=== PATIENT | female | born 1995 | race Caucasian/White ===

== ENCOUNTER 2025-10-04 08:31 | Outpatient (REF) | payer OTHER, SELFPAY ==
--- OUTSIDE RECORDS SUMMARY | 2024-08-17 10:00 | XMS_ITS ---
Author Organization [facility] [address] Address [address] [place] [address] Care Team Providers Care Director Of Web Marketing Name Role Phone VIKKILOS MITCHELL Unavailable [phone] CAROLINA VAZQUEZ Unavailable [phone] Encounters Encounter Location Date Provider Diagnosis [facility] [address] [place] [address] 08/17/2024 CAROLINA VAZQUEZ Plan Of Treatment No Information Progress Notes * EDGARBrendaDiamondOB:1995 (30 yo F)Acc No.[id number]:08/17/2024 Patient: Gale GUTIERRES Provider: Cheri VELÁZQUEZ PA-C :1995 A ge:29 Y S ex:Female Date:08/17/2024 Address:[address] [place] [address] [address], [facility] Subjective: * Chief Complaints: * * Medical History: Objective: * Vitals: Assessment: Plan: * Treatment: * Procedure Codes: 9 9199 NO SHOW OFFICE VISIT * Images: Billing Information: * Visit Code: * Procedure Codes: 29712 NO SHOW OFFICE VISIT. * Electronic signature of MARGRET VAZQUEZ PA-C on 10/04/2025 at 08:49 AM EST Sign off status: Pending * Provider: Cheri VELÁZQUEZ PA-C Date: 0 08/17/2024 Generated for Printi ng/Faxing/eTransmitting on: 1 12/04/2024 08:49 AM EST
--- OUTSIDE RECORDS SUMMARY | 2025-10-04 08:49 | XMS_ITS | Clinical Summary ---
Author Organization [facility] [address] [place] [address] [place] [phone] Phone Care Team Providers Care Printer Maintainer Name Role Phone Alvaro Gallagher MD Primary Care Pr ovider Allergies Active Allergy Reactions Criticality Noted Date Comments Polyethylene Glycol Hives,Photosensitivity High 12/31 Medications Falmina, 28, 0.1-20 mg-mcg per tablet Take 1 tablet by mouth daily. 06/05/2025 Active escitalopram (LEXAPRO) 20 mg tabletIndicatio ns:Anxiety and depression Take 0.5 tablets (10 mg total) by mouth 1 (one) time each day for 7 days, THEN 1 tablet (20 mg total) 1 (one) time each day. 184 each 07/20/2025 Active Active Problems Problem Noted Date Diagnosed Date Class 1 obesity due to exces s calories without serious comorbidity with body mass index (BMI) of 33.0 to 33.9 in adult 11/18/2024 Essential hypertension 07/10/2021 Assessment & Plan (07/20/2025 8:55 AM EDT): Not on meds. Blood pressure is well-controlled at 104/82 Orders: Lipid panel with reflex to direct LDL; Future Comprehensive metabolic panel; Future Vitamin D deficiency 05/06/2021 Assessment & Plan (07/20/2025 8:55 AM EDT): Currently not taking vitamin D supplements. Will update labs Orders: Vitamin D 25 hydroxy; Future Anxiety and depression 01/24/2019 Assessment & Plan (07/20/2025 8:55 AM EDT): Will start Lexapro at a ramp-up dose. She is referred to psychiatry. She will continue weekly therapy and biweekly couples therapy. To follow-up as needed. Orders: escitalopram (LEXAPRO) 20 mg tablet; Take 0.5 tablets (10 mg total) by mouth 1 (one) time each day for 7 days, THEN 1 tablet (20 mg total) 1 (one) time each day. Ambulatory referral to Psychiatry; Future Thyroid stimulating hormone with reflex to free t4 and free t3; Future Resolved Problems Problem Noted Date Diagnosed Date Resolved Date Depression 01/24/2019 07/20/2025 Encounters Date Type Department Care Team Description 07/21/2025 Telephone Adult Medicine [address] [phone] Alvaro Gallagher MD 07/20/2025 8:30 AM EDT Office Visit Adult Medicine [address] [phone] Alvaro Gallagher MD Essential hypertension (Primary Dx); Vitamin D deficiency; Anxiety and depression; Dysuria; Screen for STD (sexually transmitted disease) 07/07/2025 Telephone Adult Medicine [address] [phone] Kayce Vides MA from Last 3 Months Immunizations Immunization Administration Dates Next Due DTaP (Infanrix) 6wks to less than 7yo ,03/02/2001,08/19/1997,08/19,1996 ILcZ-XYZ-COV (Pentacel) 2mo to less than 5yo 03/04/2001,1996,1996 H1N1 Inj Preservative Free 10/04/2021,01/30/2010 HPV, Quadrivalent 01/30/2010,03/28/2008,01/25/20 07 Hepatitis B (Ogbomjq-J-Jgtjo , Recombivax HB-Adult) 19yo and older 04/16/2018 Hepatitis B Pediatric (Enger ix B; Recombivax HB) to less than 20 yo 03/04/2001,1996,1996 IPV Inactivated polio (Ipol) 6wks and older 03/04/2001,1996,1996 MMRV, measles mumps rubella and varicella live (Proquad) 4yo to less than 7yo 03/02/2001,08/19/1997 Meningococcal MCV4P 02/23/2014,03/04/2011 Moderna SARS-CoV-2 COVID-19, mRNA, LNP-S, preservative free 12/20/2020,11/22/2020 PPD Test 04/12/2019 Tdap Tetanus diptheria acell ular pertussis (Boostrix; Adacel) 7yo and older 07/08/2020,11/26/2018,02/23/2009 Tetanus Toxoid, Unspecified 04/16/2018, 4 Varicella live (Varivax) 12m o and older 03/04/2011,03/02/2001 Surgical History Surgery Date Site/Laterality Comments SECTION PROCEDURE: HISTORICAL ; COMMENT: 2015 and 2021 Medical History Medical History Date Comments JULIO (iron deficiency anemia) DX: JULIO (iron deficiency anemia) Depression 01/24/2019 DX:Depression Allergic rhinitis 01/24/2019 DX:Allergic rh initis Anxiety 01/24/2019 DX:Anxiety Recurrent major depressive d isorder, in partial remission (CMS/HCC V24) 12/28/2019 DX:Recurrent major depressive disorder, in partial remission ([facility]) Family History Medical History Relation Name Comments Other: autism Brother Depression Father Drug Abuse, Anx iety/Depression Hypertension Mother Nephrolithiasis Mother Hypertension , Anxiety/Depression, Anemia Breast cancer Other bilateral hemanth st cancer at age 54. Lung cancer Other Bipolar disorder Sister 1 Lung cancer Uncle Other: smoker Uncle Colon cancer Neg Hx Ovarian cancer Neg Hx Pancreatic cancer Neg Hx Relation Name Status Comments Brother Father Mother Alive Other maternal great grandmother Sister 1 Alive Sister 2 Alive Uncle Social History Tobacco Use Types Packs/Day Years Used Date Smoking Tobacco: Never Smokeless Tobacco: Never Alcohol Use Standard Drinks/Week Comments Yes 0 (1 standard drink = 0.6 oz pur e alcohol) Comments Unknown Sex and Gender Information Value Date Recorded Sex Assigned at Not on file Legal Sex Female 5:17 PM EST Gender Identity Not on file Sexual Orientation Not on file Obstetrics History Last Filed Vital Signs Vital Sign Reading Time Taken Comments Blood Pressure 114/82 07/20/2025 8:23 AM EDT Pulse 79 07/20/2025 8:23 AM EDT Temperature 36.8 C (98.3 F) 07/20/2025 8:23 AM EDT Respiratory Rate 18 07/20/2025 8:23 AM EDT Oxygen Saturation - - Inhaled Oxygen Concentration - - Weight 82.6 kg (182 lb) 07/20/2025 8:23 AM EDT Height 157.5 cm (5' 2 ) 07/20/2025 8:23 AM EDT Body Mass Index 33.29 07/20/2025 8:23 AM EDT Plan of Treatment Upcoming Encounters Date Type Department Care Team (Late st Contact Info) Description 01/23/2026 8:00 AM EST Office Visit Adult Medicine [address] [phone] Cris Montero PA [address] [place] [address] Health Maintenance Due Date Last Done Comments Cervical Cancer Screening: Pap Smear 2017 Social Influencers of Health Screening 11/01/2022 Depression Screening 11/30/2024 COVID-19 Vaccine ( season) 2025 12/20/2020, 11/22/2020 Influenza Vaccine (#1) 2025 , 10/04/2021, 08/15/2021, Additional history exists Hypertension/CHF/CAD Annual BMP Blood Test 07/20/2026 07/20/2025, 01/16/2023 Cholesterol Screening (Lipid Panel) 07/20/2030 07/20/2025 DTaP,Tdap,and Td Vaccines (11 - Td or Tdap) 03/26/2032 03/26/2022, 07/08/2020, 11/26/2018, Additional history exists RSV Immunization Adult Patients (1 - 1-dose 75+ series) 2071 MMR Vaccines Completed 03/02/2001, 0 01/2001, 08/19/1997, Additional history exists HIB Vaccines Completed 03/04/2001, 0 03/2001, 1996, Additional history exists IPV Vaccines Completed 11/14/2004, 0 03/2001, 03/04/2001, Additional history exists HPV Vaccines Completed 01/30/2010, 2 07/2008, 01/25/2007 Varicella Vaccines Completed 03/04/2011, 0 03/02/2001, 03/02/2001, Additional history exists Meningococcal ACWY Vaccine Completed 02/23/2014, Hepatitis B Vaccines Completed 10/31/2018, 05/22/2018, 04/16/2018, Additional history exists HIV Screening Completed 07/20/2025, 03/25/2021 Hepatitis C Screening Completed 07/20/2025 , 11/13/2021, 03/25/2021 Hepatitis A Vaccines Aged Out No long er eligible based on patient's age to complete this topic Meningococcal B Vaccine Aged Out No l onger eligible based on patient's age to complete this topic Pneumococcal Vaccine: Pediatrics (0 to 5 Years) and At-Risk Patients (6 to 49 Years) Aged Out No longer eligible based on patient's age to complete this topic RSV Immunization Patients Under 20 months Aged Out No longer eligible based on patient's age to complete this topic Procedures Procedure Name Priority Date/Time Associated Diagnosis Comments LIPID PANEL WITH REFLEX TO DIRECT LDL Routine 07/20/2025 9:06 AM EDT Essential hypertension COMPREHENSIVE METABOLIC PANEL Routine 07/20/2025 9:06 AM EDT Essential hypertension VITAMIN D 25 HYDROXY Routine 07/20/2025 9:06 AM EDT Vitamin D deficiency HEPATITIS C ANTIBODY Routine 07/20/2025 9:06 AM EDT Dysuria Screen for STD (sexually transmitted disease) HIV 1, 2 ANTIBODY, P24 ANTIGEN WITH REFLEX TO DIFFERENTIATION Routine 07/20/2025 9:06 AM EDT Dysuria Screen for STD (sexually transmitted disease) TREPONEMA PALLIDUM ANTIBODY WITH REFLEX TO RPR AND PARTICLE AGGLUTINATION Routine 07/20/2025 9:06 AM EDT Dysuria Screen for STD (sexually transmitted disease) THYROID STIMULATING HORMONE WITH REFLEX TO FREE T4 AND FREE T3 Routine 07/20/2025 9:06 AM EDT Anxiety and depression URINALYSIS WITH REFLEX MICROSCOPIC Routine 07/20/2025 9:05 AM EDT Dysuria URINALYSIS WITH REFLEX MICROSCOPIC Routine 07/20/2025 9:05 AM EDT Dysuria CULTURE URINE Routine 07/20/2025 9:05 AM EDT Dysuria from Last 3 Months Results * Hepatitis C antibody (07/20/2025 9:06 AM EDT) Hepatitis C Antibody Negative Negative LAB CHEMISTRY METHOD 07/20/2025 2:40 PM EDT [facility] Blood Venous blood specimen / Unknown Venipuncture / Unknown 07/20/2025 9:06 AM EDT 07/20/2025 9:06 AM EDT Alvaro Gallagher MD LAB BLOOD ORDERA BLES Final Result [facility] [address] [place] [address], * HIV 1,2 antibody, p24 antigen with reflex to differentiation (07/20/2025 9:06 AM EDT) HIV Combo AB/AG Negative Negative LAB CHEMISTRY METHOD 07/20/2025 2:40 PM EDT [facility] Blood Venous blood specimen / Unknown Venipuncture / Unknown 07/20/2025 9:06 AM EDT 07/20/2025 9:06 AM EDT Narrative [facility] - 07/20/2025 2:40 PM EDT This assay is a 4th generation assay allowing for earlier detection of HIV infection by detecting the presence of the HIV-1 p24 antigen as well as the traditional antibodies to HIV type 1 (including group O) and type 2. Use of a 4th generation assay is the current CDC recommendation for HIV screening. us Alvaro Gallagher MD LAB BLOOD ORDERA BLES Final Result Performing Organization Address City/[facility]/ZIP Co de Phone Number [facility] [address] [place] [address], [place] [phone] * Treponema pallidum antibody with reflex to RPR and particle agglutination (07/20/2025 9:06 AM EDT) T. Pallidum Antibodies Negative Negative LAB CHEMISTRY METHOD 07/20/2025 2:12 PM EDT [facility] Blood Venous blood specimen / Unknown Venipuncture / Unknown 07/20/2025 9:06 AM EDT 07/20/2025 9:06 AM EDT Alvaro Gallagher MD LAB BLOOD ORDERA BLES Final Result Performing Organization Address [facility] Co de Phone Number [facility] [address] [place] [address], [place] [phone] * Thyroid stimulating hormone with reflex to free t4 and free t3 (07/20/2025 9:06 AM EDT) TSH 1.62 0.40 - 4.00 mcIU/mL LAB CHEMISTRY METHOD 07/20/2025 2:02 PM EDT [facility] Blood Venous blood specimen / Unknown Venipuncture / Unknown 07/20/2025 9:06 AM EDT 07/20/2025 9:06 AM EDT us Alvaro Gallagher MD LAB BLOOD ORDERA BLES Final Result Performing Organization Address City/[facility]/ZIP Co de Phone Number [facility] [address] [place] [address], [place] [phone] * Lipid panel with reflex to direct LDL (07/20/2025 9:06 AM EDT) Cholesterol 175 0 - 200 mg/dL LAB CHEMISTRY METHOD 07/20/2025 1:21 PM EDT [facility] Triglycerides 103 0 - 150 mg/dL LAB CHEMISTRY METHOD 07/20/2025 1:21 PM EDT [facility] HDL 69 >=40 mg/dL LAB CHEMISTRY METHOD 07/20/2025 1:21 PM EDT [facility] LDL Calculated 85 0 - 100 mg/dL LAB CHEMISTRY METHOD 07/20/2025 1:21 PM EDT [facility] Comment:Estimated LDL Calcul ated using equation: Total cholesterol - HDL cholesterol - (Triglycerides/5) VLDL Cholesterol Nima 20.6 mg/dL LAB CHEMISTRY METHOD 07/20/2025 1:21 PM EDT [facility] Non HDL Chol. (LDL+VLDL) 106 <145 mg/dL LAB CHEMISTRY METHOD 07/20/2025 1:21 PM EDT [facility] Chol/HDL Ratio 2.5 0.0 - 4.4 LAB CHEMISTRY METHOD 07/20/2025 1:21 PM EDT [facility] Blood Venous blood specimen / Unknown Venipuncture / Unknown 07/20/2025 9:06 AM EDT 07/20/2025 9:06 AM EDT Alvaro Gallagher MD LAB BLOOD ORDERA BLES Final Result [facility] [address] [place] [address], [place] [phone] * (ABNORMAL) Vitamin D 25 hydroxy (07/20/2025 9:06 AM EDT) Vit D, 25-Hydroxy 25.6(L) 30.0 - 80.0 ng/mL LAB CHEMISTRY METHOD 07/20/2025 2:01 PM [facility] Blood Venous blood specimen / Unknown Venipuncture / Unknown 07/20/2025 9:06 AM EDT 07/20/2025 9:06 AM EDT Alvaro Gallagher MD LAB BLOOD ORDERA BLES Final Result [facility] [address] [place] [address], * Comprehensive metabolic panel (07/20/2025 9:06 AM EDT) Pathologist [facility] Sodium 138 133 - 145 mmol/L LAB CHEMISTRY METHOD 07/20/2025 1:21 PM [facility] Potassium 4.0 3.5 - 5.5 mmol/L LAB CHEMISTRY METHOD 07/20/2025 1:21 PM [facility] Chloride 108 96 - 110 mmol/L LAB CHEMISTRY METHOD 07/20/2025 1:21 PM [facility] CO2 24 21 - 32 mmol/L LAB CHEMISTRY METHOD 07/20/2025 1:21 PM [facility] Anion Gap 6 3 - 11 LAB CHEMISTRY METHOD 07/20/2025 1:21 PM [facility] Glucose 81 70 - 100 mg/dL LAB CHEMISTRY METHOD 07/20/2025 1:21 PM [facility] BUN 9 5 - 25 mg/dL LAB CHEMISTRY METHOD 07/20/2025 1:21 PM [facility] Creatinine 0.63 0.50 - 1.10 mg/dL LAB CHEMISTRY METHOD 07/20/2025 1:21 PM [facility] eGFR 123 >=60 mL/min/1. 73m2 LAB CHEMISTRY METHOD 07/20/2025 1:21 PM EDT [facility] Comment:Calculation based on the Chronic Kidney Disease Epidemiology Collaboration (CKD-EPI) equation refit without adjustment for race. BUN/Creatinine Ratio 14.3 LAB CHEMISTRY METHOD 07/20/2025 1:21 PM EDT [facility] Calcium 8.5 8.5 - 10.5 mg/dL LAB CHEMISTRY METHOD 07/20/2025 1:21 PM T [facility] AST (SGOT) 16 10 - 42 unit/L LAB CHEMISTRY METHOD 07/20/2025 1:21 PM [facility] ALT (SGPT) 27 10 - 60 unit/L LAB CHEMISTRY METHOD 07/20/2025 1:21 PM [facility] Alkaline Phosphatase 77 42 - 121 unit/L LAB CHEMISTRY METHOD 07/20/2025 1:21 PM [facility] Total Protein 7.1 6.0 - 8.0 g/dL LAB CHEMISTRY METHOD 07/20/2025 1:21 PM [facility] Albumin 3.5 3.2 - 5.0 g/dL LAB CHEMISTRY METHOD 07/20/2025 1:21 PM [facility] Total Bilirubin 0.5 0.0 - 1.4 mg/dL LAB CHEMISTRY METHOD 07/20/2025 1:21 PM T [facility] Blood Venous blood specimen / Unknown Venipuncture / Unknown 07/20/2025 9:06 AM EDT 07/20/2025 9:06 AM EDT us Alvaro Gallagher MD LAB BLOOD ORDERA BLES Final Result [facility] [address] [place] [address], [place] [phone] * (ABNORMAL) Urinalysis with reflex microscopic (07/20/2025 9:05 AM EDT) Specific [employer] Urine 1.022 1.003 - 1.030 LAB URINALYSIS - AUTOMATED METHOD 07/20/2025 10:30 AM [facility] pH, Urine 5.0 5.0 - 8.0 pH LAB URINALYSIS - AUTOMATED METHOD 07/20/2025 10:30 AM [facility] Leukocytes, Urine Negative Negative LAB URINALYSIS - AUTOMATED METHOD 07/20/2025 10:30 AM [facility] Nitrite, Urine Negative Negative LAB URINALYSIS - AUTOMATED METHOD 07/20/2025 10:30 AM [facility] Protein, Urine Negative <=Trace mg/dL LAB URINALYSIS - AUTOMATED METHOD 07/20/2025 10:30 AM [facility] Glucose, Urine Negative Negative mg/dL LAB URINALYSIS - AUTOMATED METHOD 07/20/2025 10:30 AM [facility] Ketones, Urine Trace(A) Negative mg/dL LAB URINALYSIS - AUTOMATED METHOD 07/20/2025 10:30 AM [facility] Urobilinogen, Urine 0.2 0.2 - 1.0 mg/dL LAB URINALYSIS - AUTOMATED METHOD 07/20/2025 10:30 AM [facility] Bilirubin, Urine Negative Negative LAB URINALYSIS - AUTOMATED METHOD 07/20/2025 10:30 AM [facility] Blood, Urine Negative Negative LAB URINALYSIS - AUTOMATED METHOD 07/20/2025 10:30 AM [facility] Urine Urine specimen obtained by clean catch procedure / Unknown Non-blood Collection / Unknown 07/20/2025 9:05 AM EDT 07/20/2025 9:06 AM EDT Alvaro Gallagher MD LAB URINE ORDERA BLES Final Result [facility] [address] [place] [address], [place] [phone] * Culture urine (07/20/2025 9:05 AM EDT) Culture, Urine No growth 07/21/2025 9:57 AM EDT [facility] Urine Urine specimen obtained by clean catch procedure / Unknown Non-blood Collection / Unknown 07/20/2025 9:05 AM EDT 07/20/2025 9:06 AM EDT Alvaro Gallagher MD LAB MICROBIOLOGY - GENERAL ORDERABLES Final Result Performing Organization Address City/[facility]/ZIP Co de Phone Number [facility] [address] [place] [address], [place] [phone] from Last 3 Months Insurance [facility] Care Teams Printer Maintainer Relationship Specialty Start Date End Date Alvaro Gallagher MD [address] [place] [phone] PCP - General Internal Medicine 07/07/25
--- OUTSIDE RECORDS SUMMARY | 2025-10-04 08:49 | XMS_ITS | Patient Health Record ---
Author Organization [facility] [address] Address [address] [place] [address] Care Team Providers Care Endo Tech Name Role Phone LOS MESSINA Unavailable [phone] Allergies Allergen (clinical drug ingredient) Drug/Non Drug Allergy documented on EMR Reaction Allergy Type Onset Date Status Polyethylene Glycol hives Drug Allergy Active Reason For Referral No Information Medications Medication SIG (Take, Route, Fr equency, Duration) Notes Start Date End Date Status Multi Complete - as directed Orally Active Vitamin D 5,000 1 tablet daily oral 1 tablet daily Active Wegovy 0.25 MG/0.5ML 0.5 mL Subcutaneous weekly Active Wegovy 0.5 MG/0.5ML 0.5 mg Subcutaneous weekly; Duration: 30 days Active Lexapro 10 MG 1 tablet Orally Once a day Active Social History Tobacco Use: Social History Observation Description Date Details (start date - stop date) Never Smoker NA - NA Tobacco Use/Smoking Question Answer Notes Are you a nonsmoker Problems Problem Type SNOMED Code ICD Code Onset Dates Problem Status W/U Status Risk Notes Problem Obesity due to excess calories (995432160) Other obesity due to excess calories (E66.09) Active confirmed Problem Body mass index 35.00 to 39.99 (77396499823577 5) Body mass index [BMI] 36.0-36.9, adult (Z68.36) Active confirmed Problem Body mass index 35.00 to 39.99 (27651439244379 5) Body mass index [BMI] 38.0-38.9, adult (Z68.38) Active confirmed Problem Obese class II (42562079578917 5) BMI 37.0-37.9, adult (Z68.37) Active confirmed Problem Obese class II (93851904703640 5) BMI 39.0-39.9,adult (Z68.39) Active confirmed Problem Morbid obesity (091191936) Morbid obesity due to excess calories (E66.01) Active confirmed Problem Mixed anxiety and depressive disorder (202412737) Depression with anxiety (F41.8) Active confirmed Plan Of Treatment No Information Insurance Providers Payer Name Payer Address Payer Phone Subscriber Number Group Number Insured Name Patient Relationship to Insured Coverage Start Date Coverage End Date [facility] [address] [place] [address] [id number] Gale Rosen Self - patient is the insured 3 Medical (General) History Medical History History ICD Code high blood pressure anxiety Weight gain Surgical History Surgery Date(Month/Year) C section
--- OUTSIDE RECORDS SUMMARY | 2025-10-04 08:49 | XMS_ITS | Encounter Summary ---
Author Organization [facility] Address [address] [place] [address] Care Team Providers Care Food Service Kitchen Supervisor Name Role Phone Zaria Montejo MD Primary Care Provider U Alvaro Rudolph MD Primary Care Provider + Reason for Visit * Reason Onset Date Comments Follow-up Appt Unavailable 06/12/2021 Encounter Details Date Type Department Care Team Description 06/12/2021 Telephone Pulmonology - [place] [address] [phone] Lakshmi Swanson APRN [address] [phone] Follow-up Appt Unavailable Social History Tobacco Use Types Packs/Day Years Used Date Smoking Tobacco: Never Smokeless Tobacco: Never Alcohol Use Standard Drinks/Week Comments Yes 0 (1 standard drink = 0.6 oz pur e alcohol) occasional drinker Sex Assigned at Date Recorded Not on file COVID-19 Exposure Response Date Recorded In the last month, have you been in contact with someone who was confirmed or suspected to have Coronavirus / COVID-19? Unable to assess 06/11/2021 10:34 AM EDT documented as of this encounter Miscellaneous Notes * Telephone Encounter - Kelsi Padilla - 08/15/2021 3:50 PM EDT Lvm for patient to call back for a f/u appt for chronic cough, GERD, Post nasal drip. documented in this encounter Plan of Treatment Not on file documented as of this encounter Visit Diagnoses Not on filedocumented in this encounter Care Teams Food Service Kitchen Supervisor Relationship Specialty Start Date End Date Zaria Montejo MD PCP - General Internal Medicine 12/01/1812/25 Alvaro Gallagher MD [address] [place] [id number] PCP - General Internal Medicine 12/26/22 documented as of this encounter
--- OUTSIDE RECORDS SUMMARY | 2025-10-04 08:49 | XMS_ITS | Encounter Summary ---
Author Organization [facility] Address [address] [place] [address] Care Team Providers Care Hospice Art Therapist Name Role Phone Zaria Montejo MD Primary Care Provider U Alvaro Rudolph MD Primary Care Provider + Reason for Visit * Reason Onset Date Comments Provider Call Back 08/26/2021 Encounter Details Date Type Department Care Team Description 08/26/2021 Telephone Pulmonology - [place] [address] [phone] Lakshim Swanson, ZOFIA [address] [phone] Provider Call Back Social History Tobacco Use Types Packs/Day Years Used Date Smoking Tobacco: Never Smokeless Tobacco: Never Alcohol Use Standard Drinks/Week Comments Yes 0 (1 standard drink = 0.6 oz pur e alcohol) occasional drinker Sex Assigned at Date Recorded Not on file documented as of this encounter Miscellaneous Notes * Telephone Encounter - Taylor Garnett M.A. - 08/26/2021 2:10 PM EDT Patient was advised if cough gets worsen please go to the er or to the urgent care until her appointment with Lakshmi * Telephone Encounter - Kelsi Padilla - 08/26/2021 1:49 PM EDT Patient stated her cough is getting worse. Keeps waking up multiple times at night due to coughing.Nov 12/02/21 @ 3pm Please advice documented in this encounter Plan of Treatment Not on file documented as of this encounter Visit Diagnoses Not on filedocumented in this encounter Care Teams Hospice Art Therapist Relationship Specialty Start Date End Date Zaria Montejo MD PCP - General Internal Medicine 12/01/1812/25 Alvaro Gallagher MD [address] [place] [address] PCP - General Internal Medicine 12/26/22 documented as of this encounter
--- OUTSIDE RECORDS SUMMARY | 2025-10-04 08:49 | XMS_ITS | Encounter Summary ---
Author Organization [facility] Address [address] [place] [address] Care Team Providers Care Optical Instrument Inspector Name Role Phone Zaria Montejo MD Primary Care Provider U Alvaro Rudolph MD Primary Care Provider + Encounter Details Date Type Department Care Team Description 07/03/2021 Aix Administrator Report Medical Records [address] [place] [address] Ariela Szymanski MD Social History Tobacco Use Types Packs/Day Years [...] or suspected to have Coronavirus / COVID-19? No / Unsure 06/22/2021 12:27 PM EDT documented as of this encounter Plan of Treatment Not on file documented as of this encounter Visit Diagnoses Not on filedocumented in this encounter Care Teams Optical Instrument Inspector Relationship Specialty Start Date End Date Zaria Montejo MD PCP - General Internal Medicine 12/01/1812/25 Alvaro Gallagher MD [address] [place] [id number] PCP - General Internal Medicine 12/26/22 documented as of this encounter
--- OUTSIDE RECORDS SUMMARY | 2025-10-04 08:49 | XMS_ITS ---
Author Name [facility] Organization Unknown Care Team Organization Name Specialty Phone Email Start Date End Da glo [facility] MARIA E GREGG [email or web address] 06/04/2023 4 [facility] Hilario Alvarenga Primary Care 05/08/2023 4 [facility] GUILLE Burnett Primary Care 02/04/202306/30 4 [facility] Zaria Carson Primary Care 10/07/2022 4
--- OUTSIDE RECORDS SUMMARY | 2025-10-04 08:49 | XMS_ITS | Encounter Summary ---
Author Organization [facility] Address [address] [place] [address] Care Team Providers Care Busboy Name Role Phone Zaria Montejo MD Primary Care Provider U Alvaro Rudolph MD Primary Care Provider + Encounter Details Date Type Department Care Team Description 05/09/2022 [facility] Medical Records [address] [place] [address] Abstract, Provider Social History Tobacco Use Types Packs/Day Years Used Date Smoking Tobacco: Never Smokeless Tobacco: Never Alcohol Use Standard Drinks/Week Comments Yes 0 (1 standard drink = 0.6 oz pur e alcohol) occasional drinker Sex Assigned at Date Recorded Not on file documented as of this encounter Plan of Treatment Not on file documented as of this encounter Visit Diagnoses Not on filedocumented in this encounter Care Teams Busboy Relationship Specialty Start Date End Date Zaria Montejo MD PCP - General Internal Medicine 12/01/1812/25 Alvaro Gallagher MD [address] [place] [phone] PCP - General Internal Medicine 12/26/22 documented as of this encounter
--- OUTSIDE RECORDS SUMMARY | 2025-10-04 08:49 | XMS_ITS | Clinical Summary ---
Author Organization [employer] Address [address] [facility] [address] [place] [address] Care Team Providers Care Shipper/Receiver Name Role Phone Unavailable Primary Care Provider Unavailabl e Allergies Active Allergy Reactions Criticality Noted Date Comments Glycol 10/06/2024 Polyethylene 10/06/2024 Polyethylene Glycol Cough,Fever,Hives,Ph o tosensitivity,Rash High 10/14/2021 Other Reaction(s): Vasculitis Medications No known medications Active Problems Problem Noted Date Diagnosed Date Class 2 obesity due to exces s calories with body mass index (BMI) of 36.0 to 36.9 in adult 04/28/2023 Anemia 05/09/2022 Overview (01/25/2025): Client has post op day 1 hgb of 8.8, will do day 2 CBC and ferritin, schedule outpatient IV iron infusion at her request d/t nausea and constipation with oral iron supplementation care and examination immediately afte r delivery 05/09/2022 Overview (01/25/2025): Requests early discharge on day 2 s/p , 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 History of vitamin D deficiency 03/07/2022 Overview (01/25/2025): Was in April 2021, had 12 weeks of treatment. PCP checked vitamin D level 01/28/2022, sent records via portal - 33 (normal) Diet controlled gestational diabetes mellitus (GDM) in third trimester 03/06/2022 Overview (01/25/2025): Diagnosis of gDM - 1hr 205 1 hour 130 (Mohsen Kraft) or 140 (National Diabetes Association), and 180 is overt diagnosis Plan for diet controlled gDM o CEDE - referral made o Routine care Recommend 2 hour GTT at 6 weeks pp, discuss at visit. History of COVID-19 12/08/2021 Overview (01/25/2025): Date of symptom onset or positive test: 12/08/21. Was hospitalized at [facility], received MAB. Gestational age at diagnosis: 15 weeks ? Routine anatomy survey at 18-20 weeks ? Offer growth US at 30-32 weeks (or 2-4 weeks after infection occurring after 32 weeks) Normal growth 50% on 03/26/22 History of delivery 10/14/2021 Overview (01/25/2025): Date of surgery: 2015 Reason for : failure to progress at 5 cm Incision type: LTCS Records requested: yes, in media Posterior placenta ? No No e/o accreta on Level II U/S Delivery route counselin02/07/22 and 03/07/22 Preferred mode of delivery: Consent signed: 03/07/22 Counseled again 04/29/22. Repeat scheduled 05/07/22. Essential hypertension 07/10/2021 Vitamin D deficiency 05/06/2021 Anxiety and depression 01/24/2019 Overview (01/25/2025): -On lexapro -PCP prescribes -Will like to stay on it. Counseled on Depression 01/24/2019 Immunizations Immunization Administration Dates Next Due Influenza, seasonal, injectable, preservative fr ee 08/10/2024 Social History Tobacco Use Types Packs/Day Years Used Date Smoking Tobacco: Never Smokeless Tobacco: Never Tobacco Cessation:Counseling Given: Not Answered Alcohol Use Standard Drinks/Week Comments Never 0 (1 standard drink = 0.6 oz pur e alcohol) Comments Unknown Sex and Gender Information Value Date Recorded Sex Assigned at Female 09/29/2022 10:37 AM EDT Legal Sex Female 10:37 AM EDT Gender Identity Female 09/29/2022 10:37 AM EDT Sexual Orientation Straight 09/29/2022 10 :37 AM EDT Last Filed Vital Signs Vital Sign Reading Time Taken Comments Blood Pressure 110/72 01/25/2025 3:04 PM EST Pulse - - Temperature - - Respiratory Rate - - Oxygen Saturation - - Inhaled Oxygen Concentration - - Weight - - Height - - Body Mass Index - - Plan of Treatment Upcoming Encounters Date Type Department Care Team (Late st Contact Info) Description 10/05/2025 8:45 AM EST Office Visit [facility] [address] [place] [address] Lindy Valdes Health Maintenance Due Date Last Done Comments Depression Screening 1996 HIV Screening 1996 Lipid Panel 1996 SDOH Screening 1996 Disability Screening 1996 Alcohol/Substance Use Screening 2008 Family Planning (PISQ) 2011 Hepatitis C Screening 2014 Pap Smear 2017 Dental Oral Exam 06/29/2025 12/29/2024 Dental Prophylaxis 06/29/2025 12/29/2024 COVID-19 Vaccine ( season) 2025 12/20/2020, 11/22/2020 Influenza Vaccine (#1) 2025 , 08/25/2023, 10/04/2021, Additional history exists Dental X-Ray: Bitewings 12/30/2025 12/29/2024 Tobacco Screening 01/25/2026 01/25/2025 Dental X-Ray: Full Mouth 12/30/2027 12/29/2024, 05/2024 DTaP/Tdap/Td Vaccines (13 - Td or Tdap) 03/26/2032 03/26/2022, 07/08/2020, 11/26/2018, Additional history exists Zoster Vaccines (1 of 2) 2046 RSV Patients and Patients Aged 60 years or older (1 - 1-dose 75+ series) 2071 HIB Vaccines Completed 03/04/2001, 0 03/2001, 1996, Additional history exists IPV Vaccines Completed 11/14/2004, 0 03/2001, 03/04/2001, Additional history exists HPV Vaccines Completed 01/30/2010, 2 07/2008, 01/25/2007 Meningococcal Vaccine Completed 02/23/2014, 011 Hepatitis B Vaccines Completed 10/31/2018, 05/22/2018, 04/16/2018, Additional history exists Hepatitis A Vaccines Aged Out No long er eligible based on patient's age to complete this topic Meningococcal B Vaccine Aged Out No l onger eligible based on patient's age to complete this topic Pneumococcal Vaccine: Pediatrics (0 to 5 Years) and At-Risk Patients (6 to 49) Years Aged Out No longer eligible based on patient's age to complete this topic RSV under 20 months Aged Out No longe r eligible based on patient's age to complete this topic Rotavirus Vaccines Aged Out No longer eligible based on patient's age to complete this topic Procedures Procedure Name Priority Date/Time Associated Diagnosis Comments PROPHYLAXIS - ADULT Routine 12/29/2024 8 :00 AM EST Dental calculus Dental plaque INTRAORAL - COMPLETE SERIES OF RADIOGRAPHIC IMAGES Routine 12/29/2024 8:00 AM EST COMPREHENSIVE ORAL EVALUATION - NEW OR ESTABLISHED PATIENT Routine 12/29/2024 8:00 AM EST Dental calculus Dental plaque Encounter for dental examination Dental caries from Last 3 Months or Most Recently Relevant to Health Maintenance Insurance , [address] [place] [address] DENTAL - HSN PARTIAL (MEDICAID)
--- OUTSIDE RECORDS SUMMARY | 2025-10-04 08:49 | XMS_ITS | Clinical Summary ---
Author Organization [facility] Address [address] [place] [address] Care Team Providers Care Curriculum Writer Name Role Phone Alvaro Gallagher MD Primary Care Provider + Allergies Active Allergy Reactions Severity Noted Date Comments Polyethylene Glycol Hives/Urticaria,Photosensitivity High 01/16/2023 Medications Medication Sig Dispensed Refills Start Date End Date Status OCP, GENERIC, Take 1 Tablet by mouth daily. Progesterone only 0 Active vitamin D (ERGOCALCIFEROL) 1.25 MG (80203 UT) capsule Take 1 Capsule by mouth once a week for 9 doses. 9 Capsule 0 01/22/2023 Active Semaglutide-Weight Management (Wegovy) 0.5 MG/0.5ML Solution Auto-injectorIndica tions:Class 2 obesity due to excess calories with body mass index (BMI) of 36.0 to 36.9 in adult, unspecified whether serious comorbidity present Inject into the skin. 0 04/28/2023 Active escitalopram (LEXAPRO) 20 MG tablet TAKE 1 TABLET BY MOUTH EVERY DAY 90 Tablet 1 09/07/2024 Active Active Problems Problem Noted Date Class 2 obesity due to exces s calories with body mass index (BMI) of 36.0 to 36.9 in adult 04/28/2023 History of COVID-19 12/08/2021 Overview: 12/08/21 Essential hypertension 07/10/2021 Vitamin D deficiency 05/06/2021 Depression 01/24/2019 Anxiety 01/24/2019 Resolved Problems Problem Noted Date Resolved Date Recurrent major depressive disorder, in partial remission 12/28/2019 04/28/2023 Allergic rhinitis 01/24/2019 04/28/2023 JULIO (iron deficiency anemia) 12/20/2018 Immunizations Name Administration Dates Next Due COVID-19 (Moderna) PT Reported 12/20/2020,2019 DTaP 11/14/2004, 1,08/19/1997,08/19,1996 HIB 03/04/2001,1996,1996 HPV (Gardasil) 01/30/2010,03/28/2008,01/25/2007 Hepatitis B > 19yrs 04/16/2018 Hepatitis B-3 Dose (<19yrs) 03/04/2001, 6,1996 Influenza H1N1 Pandemic Flu Vaccine 10/04/2021,0 01/30/2010 MMRV (Dkuvets-Gohiy-Ndnlcgm-Varicella) 1,08/19/1997 Meningococcal (Menactra) 02/23/2014,03/04/2011 PPD-RBMG 04/12/2019 Polio (IPV) 03/04/2001,1996,1996 Tdap 07/08/2020,11/26/2018,02/23/2009 Tetanus Toxoid 04/16/2018,02/23/2014 Varicella 03/04/2011,03/02/2001 Family History Medical History Relation Name Comments autism Brother Depression Father Drug Abuse, Anx iety/Depression Hypertension Mother Kidney Stones Mother Hypertension, Anxiety/Depression, Anemia CA Lung Other Cancer of the Breast Other bilater al breast cancer at age 54. Bipolar Disorder Sister 2 Cancer of the Lung Uncle smoker Uncle CA Colon Negative Hx CA Ovarian Negative Hx CA of Pancreas Negative Hx Relation Name Status Comments Brother Father Mother Alive Other maternal great grandmother Sister 1 Alive Sister 2 Alive Uncle Social History Tobacco Use Types Packs/Day Years Used Date Smoking Tobacco: Never Smokeless Tobacco: Never Alcohol Use Standard Drinks/Week Comments Yes 0 (1 standard drink = 0.6 oz pur e alcohol) occasional drinker Sex Assigned at Date Recorded Not on file Last Filed Vital Signs Vital Sign Reading Time Taken Comments Blood Pressure 110/86 04/28/2023 1:58 PM EDT Pulse 103 04/28/2023 1:58 PM EDT Temperature 36.9 C (98.4 F) 04/28/2023 1:58 PM EDT Respiratory Rate 18 04/28/2023 1:58 PM EDT Oxygen Saturation - - Inhaled Oxygen Concentration - - Weight 90.7 kg (200 lb) 04/28/2023 1:58 PM EDT Height 158.8 cm (5' 2.5 ) 04/28/2023 1:58 PM EDT Body Mass Index 36 04/28/2023 1:58 PM EDT Plan of Treatment Health Maintenance Due Date Last Done Comments CHOLESTEROL SCREENING 2016 CERVICAL CANCER SCREENING 2017 BMI CHECK/ADVISE 11/30/2024 04/28/2023, , 05/26/2022, Additional history exists Covid-19 Vaccine (2022- 4 season) 2025 12/20/2020, 11/22/2020 INFLUENZA (#1) 2025 08/15/2020, 09/15/2018 BASELINE HEALTH EXAM 18-39 04/28/2028 04/28/2023, DTAP/TDAP/TD (8 - Td or Tdap) 07/08/2030, 11/26/2018, 02/23/2009, Additional history exists PNEUMOCOCCAL VACCINE FOR HIG H RISK PATIENTS (#1) 2061 Care Teams Curriculum Writer Relationship Specialty Start Date End Date Alvaro Gallagher MD [address] [place] [id number] PCP - General Internal Medicine 12/26/22
--- OUTSIDE RECORDS SUMMARY | 2025-10-04 08:49 | XMS_ITS | Encounter Summary ---
Author Organization [facility] Address [address] [place] [address] Care Team Providers Care Compugraph Operator Name Role Phone Zaria Montejo MD Primary Care Provider U Alvaro Rudolph MD Primary Care Provider + Encounter Details Date Type Department Care Team Description 12/21/2018 Release of Information Medical Records [address] [place] [address] Abstract, Provider Social History Tobacco Use Types [...] on filedocumented in this encounter Care Teams Compugraph Operator Relationship Specialty Start Date End Date Zaria Montejo MD PCP - General Internal Medicine 12/01/1812/25 Alvaro Gallagher MD [address] [place] [phone] PCP - General Internal Medicine 12/26/22 documented as of this encounter
--- OUTSIDE RECORDS SUMMARY | 2025-10-04 08:49 | XMS_ITS | Encounter Summary ---
Author Organization [facility] Address [address] [place] [address] Care Team Providers Care Fuel Manager Name Role Phone Zaria Montejo MD Primary Care Provider U Alvaro Rudolph MD Primary Care Provider + Encounter Details Date Type Department Care Team Description 09/29/2022 Pt. Non Urgent Medical Question Adult Medicine [address] [address] Zaria Montejo MD Social History Tobacco Use Types Packs/Day Years Used Date Smoking Tobacco: Never Smokeless Tobacco: Never Alcohol Use Standard Drinks/Week Comments Yes 0 (1 standard drink = 0.6 oz pur e alcohol) occasional drinker Sex Assigned at Date Recorded Not on file documented as of this encounter Miscellaneous Notes * Telephone Encounter - Janet Call M.A. - 09/30/2022 8:31 AM EDTFrom: Gale Shreya To: Cong Carson Sent: 09/29/2022 5:16 PM EDT Subject: Referral Request Good afternoon! I have a large ganglion cyst on my left hand that has recently increased in size. Ispoke to one of the health care providers I work with who advised I ask my PCP for a referral to hand surgeon. Due to the size she said even if I get it drained it will probably come back. Unsure whether I need an appointment for thi s or if the referral can just be placed. Please let me know. Thank you! documented in this encounter Plan of Treatment Not on file documented as of this encounter Visit Diagnoses Not on filedocumented in this encounter Care Teams Fuel Manager Relationship Specialty Start Date End Date Zaria Montejo MD PCP - General Internal Medicine 12/01/1812/25 Alvaro Gallagher MD [address] [place] [address] PCP - General Internal Medicine 12/26/22 documented as of this encounter
--- OUTSIDE RECORDS SUMMARY | 2025-10-04 08:49 | XMS_ITS | Encounter Summary ---
Author Organization [facility] Address [address] [place] [address] Care Team Providers Care Discharge Planner Name Role Phone Zaria Montejo MD Primary Care Provider U Alvaro Rudolph MD Primary Care Provider + Encounter Details Date Type Department Care Team Description 04/26/2021 Orders Only Medical Records [address] [place] [address] Abstract, Provider Social History Tobacco Use Types [...] have Coronavirus / COVID-19? No / Unsure 04/24/2021 3:44 PM EDT documented as of this encounter Plan of Treatment Not on file documented as of this encounter Visit Diagnoses Not on filedocumented in this encounter Care Teams Discharge Planner Relationship Specialty Start Date End Date Zaria Montejo MD PCP - General Internal Medicine 12/01/1812/25 Alvaro Gallagher MD [address] [place] [phone] PCP - General Internal Medicine 12/26/22 documented as of this encounter
--- OUTSIDE RECORDS SUMMARY | 2025-10-04 08:49 | XMS_ITS | Encounter Summary ---
Author Organization [facility] Address [address] [place] [address] Care Team Providers Care Scanner Supervisor Name Role Phone Zaria Montejo MD Primary Care Provider Alvaro Rudolph MD Primary Care Provider + Encounter Details Date Type Department Care Team Description 04/19/2022 Hospital Medical Records [address] [place] [id number] [place] [address] [phone] Social History Tobacco Use Types Packs/Day Years [...] on filedocumented in this encounter Care Teams Scanner Supervisor Relationship Specialty Start Date End Date Zaria Montejo MD PCP - General Internal Medicine 12/01/1812/25 Alvaro Gallagher MD [address] [place] [phone] PCP - General Internal Medicine 12/26/22 documented as of this encounter
[2025-10-04 12:50] LABS: Cannabinoid Screen Urine Not Detected (Not Detect)
== END 2025-10-04 08:32 | disposition home or self-care (01) ==
LOC: HO.HHCL 08:31
PROVIDERS: Visit Provider Nurse Practitioner Family
DX: Z51.81 Encounter for therapeutic drug level monitoring (principal); F41.1 Generalized anxiety disorder; Z79.899 Other long term (current) drug therapy
CPT/HCPCS: 80307

== ENCOUNTER → 2025-10-10 08:07 | Outpatient (REF) | payer OTHER, SELFPAY ==
--- OUTSIDE RECORDS SUMMARY | 2024-08-17 10:00 | XMS_ITS ---
Author Organization [facility] [address] Address [address] [place] [address] Care Team Providers Care Economic Historian Name Role Phone VIKKIAARONJoycelynAIXAEN Unavailable [phone] CAROLINA VAZQUEZ Unavailable [phone] Encounters Encounter Location Date Provider Diagnosis [facility] [address] [place] [address] 08/17/2024 CAROLINA VAZQUEZ Plan Of Treatment No Information Progress Notes * Mahad ROSENOB:1995 (30 yo F)Acc No.[id number]:08/17/2024 Patient: Gale Calderon Provider: Cheri VELÁZQUEZ PA-C :1995 A ge:29 Y S ex:Female Date:08/17/2024 Address:[address] [place] [address] [address], [facility] Plan: * Procedure Codes: 9 9199 NO SHOW OFFICE VISIT Billing Information: * Procedure Codes: 49417 NO SHOW OFFICE VISIT. * Electronic signature of MARGRET VAZQUEZ PA-C on 10/10/2025 at 08:13 AM EST Sign off status: Pending * Provider: Cheri VELÁZQUEZ PA-C Date: 0 08/17/2024 Generated for Antonette cueva/Angel/eTericsmitting on: 12/10/2024 08:13 AM EST
--- OUTSIDE RECORDS SUMMARY | 2025-10-10 08:13 | XMS_ITS | Encounter Summary ---
Author Organization [facility] Address [address] [place] [address] Care Team Providers Care Drag Out Man Name Role Phone Zaria Montejo MD Primary Care Provider U Alvaro Rudolph MD Primary Care Provider + Reason for Visit * Reason Onset Date Comments Provider Call Back 08/26/2021 Encounter Details Date Type Department Care Team Description 08/26/2021 Telephone Pulmonology - [place] [address] [phone] Lakshmi Swanson, ZOFIA [address] [phone] Provider Call Back Social History Tobacco Use [...] on filedocumented in this encounter Care Teams Drag Out Man Relationship Specialty Start Date End Date Zaria Montejo MD PCP - General Internal Medicine 12/01/1812/25 Alvaro Gallagher MD [address] [place] [id number] PCP - General Internal Medicine 12/26/22 documented as of this encounter
--- OUTSIDE RECORDS SUMMARY | 2025-10-10 08:13 | XMS_ITS | Patient Health Record ---
Author Organization [facility] Address [address] [place] [address] Care Team Providers Care Finished Carpet Inspector Name Role Phone LOS MESSINA Unavailable [phone] Allergies Allergen (clinical drug ingredient) Drug/Non Drug Allergy documented on EMR Reaction Allergy Type Onset Date Status Polyethylene Glycol hives Drug Allergy Active Reason For Referral No Information Medications Medication SIG (Take, Route, Frequency, Duration) Notes Start Date End Date Status Multi Complete - Capsule as directed Orally Active Vitamin D 5,000 tablet 1 tablet daily or al 1 tablet daily Active Wegovy 0.25 MG/0.5ML Solution Auto-injector 0.5 mL Subcutaneous weekly Active Wegovy 0.5 MG/0.5ML Solution Auto-injector 0.5 mg Subcutaneous weekly; Duration: 30 days Active Lexapro 10 MG Tablet 1 tablet Orally Once a day Active Social History Tobacco Use: Social History Observation Description Date Details (start date - stop date) Never Smoker NA - NA Social History Tobacco Use: Social Info Question Answer Notes Tobacco Use/Smoking Are you a nonsmoker Additional Details Category Social Info Options Details Drugs/Alcohol: Do you smoke marijuana? De nies Do you drink alcohol? No Problems Problem Type SNOMED Code ICD Code Onset Dates Problem Status W/U Status Risk Notes Problem Obesity due to excess calories (238489656) Other obesity due to excess calories (E66.09) Active confirmed Problem Body mass index 35.00 to 39.99 (05985026940338 5) Body mass index [BMI] 36.0-36.9, adult (Z68.36) Active confirmed Problem Body mass index 35.00 to 39.99 (75330940303935 5) Body mass index [BMI] 38.0-38.9, adult (Z68.38) Active confirmed Problem Obese class II (45500719145155 5) BMI 37.0-37.9, adult (Z68.37) Active confirmed Problem Obese class II (13132159542360 5) BMI 39.0-39.9,adult (Z68.39) Active confirmed Problem Morbid obesity (456853214) Morbid obesity due to excess calories (E66.01) Active confirmed Problem Mixed anxiety and depressive disorder (148126072) Depression with anxiety (F41.8) Active confirmed Plan Of Treatment No Information Insurance Providers Payer Name Payer Address Payer Phone Subscriber Number Group Number Insured Name Patient Relationship to Insured Coverage Start Date Coverage End Date [facility] [address] [place] [address] [id number] Gale Rosen Self - patient is the insured 3 Medical (General) History Medical History History ICD Code high blood pressure anxiety Weight gain Surgical History Surgery Date(Month/Year) C section
--- OUTSIDE RECORDS SUMMARY | 2025-10-10 08:13 | XMS_ITS | Encounter Summary ---
Author Organization [facility] Address [address] [place] [address] Care Team Providers Care Charm Filter Operator Helper Name Role Phone Alvaro Gallagher MD Primary Care Provider + Reason for Visit * Reason Comments E-prescribe Rx Request Encounter Details Date Type Department Care Team Description 09/05/2024 Refill Adult Medicine [facility] [address] [place] [address] Alvaro Gallagher MD [address] [place] [address] E-prescribe Rx Request Social History Tobacco Use Types Packs/Day Years Used Date Smoking Tobacco: Never Smokeless Tobacco: Never Alcohol Use Standard Drinks/Week Comments Yes 0 (1 standard drink = 0.6 oz pur e alcohol) occasional drinker Sex Assigned at Date Recorded Not on file documented as of this encounter Miscellaneous Notes * Telephone Encounter - Cris Montero PA-C - 09/07/2024 11:08 AM EDT Signed * Telephone Encounter - Zenobia Betancourt M.A. - 09/07/2024 10:44 AM EDT Lab Results Component Value Date NA 139 01/16/2023 K 4.3 01/16/2023 CO2 25 01/16/2023 CL 106 01/16/2023 BUN 12 01/16/2023 CREAT 0.58 01/16/2023 GLU 76 01/16/2023 CA 9.5 01/16/2023 GFR 128 01/16/2023 Pending appt 08/2024 Last appt 04/28/24 * Telephone Encounter - Mayela Ferrari - 09/07/2024 10:38 AM EDT Patient would like script to be: E-PRESCRIBED/FAXED TO PHARMACY WHEN WAS THE PATIENT'S LAST APPOINTMENT IN ADULT MEDICINE? 04/28/2023 WHEN WAS THE LAST TIME THE PATIENT SAW THEIR PCP? Same as above Does patient have an upcoming appointment? Yes 09/20/2024 (THE MEDICATION REQUESTED IS ON THE MED LIST ABOVE) All of the medications requested were on the CURRENT MEDS list Did you check the Pharmacy information above?: YES Patient wants: 90 -day supply Is this a mail order prescription request ? NO If the refill is from a FAXED refill request what is the RX # listed on the fax? N/A Patients current insurance carrier is: Payor: [employer] / Plan: [employer] $20 YONCALLA 1 / Product Type: HMO [id number] documented in this encounter Plan of Treatment Not on file documented as of this encounter Visit Diagnoses Not on filedocumented in this encounter Care Teams Charm Filter Operator Helper Relationship Specialty Start Date End Date Alvaro Gallagher MD [address] [place] [address] PCP - General Internal Medicine 12/26/22 documented as of this encounter
--- OUTSIDE RECORDS SUMMARY | 2025-10-10 08:13 | XMS_ITS | Clinical Summary ---
Author Organization [employer] Address [address] [facility] 7t [place] [address] Care Team Providers Care Advertising Teacher Name Role Phone Unavailable Primary Care Provider [...] or positive test: 12/08/21. Was hospitalized at [facility], received MAB. Gestational age at diagnosis: 16 [...] Mass Index - - Plan of Treatment Health Maintenance Due Date [...] to Health Maintenance Insurance , [address] [place] [address] DENTAL - HSN PARTIAL (MEDICAID)
--- OUTSIDE RECORDS SUMMARY | 2025-10-10 08:14 | XMS_ITS | Encounter Summary ---
Author Organization [facility] Address [address] [place] [address] Care Team Providers Care Meat Wrapper Name Role Phone Zaria Montejo MD Primary Care Provider U Alvaro Rudolph MD Primary Care Provider + Encounter Details Date Type Department Care Team Description 01/15/2022 Pt. Non Urgent Medical Question Adult Medicine [facility] [place] [address] [place] [address] Indira Huynh, ABSTRACTOR [address] [place] [address] Social History Tobacco Use Types Packs/Day Years [...] have Coronavirus / COVID-19? No / Unsure 01/14/2022 4:51 PM EST documented as of this encounter Miscellaneous Notes * Telephone Encounter - Estrellita Pisano M.A. - 01/15/2022 4:31 PM ESTFrom: Gale Cash To: Joycelyn Huynh Sent: 01/15/2022 4:31 PM EST Subject: Labs I saw your message regarding getting more labs drawn within 2 weeks. With your lab no longer being open on Saturdays, it is very difficult for me to get them done. I work at the same time that the lab is open so I have to take off work just to get them drawn. Is there anyway the lab slip can be mailed to me and I can bring to the lab at my job or it [facility] be [facility] to [facility] [address] [facility] (fax: )? I would really appreciate it! documented in this encounter Plan of Treatment Not on file documented as of this encounter Visit Diagnoses Not on filedocumented in this encounter Care Teams Meat Wrapper Relationship Specialty Start Date End Date Zaria Montejo MD PCP - General Internal Medicine 12/01/1812/25 Alvaro Gallagher MD [address] [place] [address] PCP - General Internal Medicine 12/26/22 documented as of this encounter
--- OUTSIDE RECORDS SUMMARY | 2025-10-10 08:14 | XMS_ITS | Encounter Summary ---
Author Organization [email or web address] Address [address] [place] [address] Care Team Providers Care Emergency Preparedness Manager Name Role Phone Zaria Montejo MD Primary Care Provider U Alvaro Rudolph MD Primary Care Provider + Encounter Details Date Type Department Care Team Description 07/03/2021 Eyeglass Maker Report Medical Records [address] [place] [id number] Ariela Szymanski MD Social History Tobacco Use [...] on filedocumented in this encounter Care Teams Emergency Preparedness Manager Relationship Specialty Start Date End Date Zaria Montejo MD PCP - General Internal Medicine 12/01/1812/25 Alvaro Gallagher MD [address] [place] [address] PCP - General Internal Medicine 12/26/22 documented as of this encounter
--- OUTSIDE RECORDS SUMMARY | 2025-10-10 08:14 | XMS_ITS | Clinical Summary ---
Author Organization [facility] [address] [place] [address] [place] [phone] Phone Care Team Providers Care Blade Balancer Name Role Phone Alvaro Galalgher MD Primary Care Pr ovider Allergies Active [...] Care Team Description 07/21/2025 Telephone Adult Medicine [address] [phone] Alvaro Gallagher MD 07/20/2025 8:30 AM EDT Office Visit Adult Medicine [address] [phone] Alvaro Gallagher MD Essential hypertension (Primary Dx); Vitamin D deficiency; Anxiety and depression; Dysuria; Screen for STD (sexually transmitted disease) from Last 3 Months Immunizations Immunization Administration Dates Next Due DTaP (Infanrix) 6wks to less than 7yo ,03/02/2001,08/19/1997,08/19,1996 [id number] (Pentacel) 2mo to less than 5yo 03/04/2001,1996,1996 H1N1 Inj Preservative Free 10/04/2021,01/30/2010 HPV, Quadrivalent 01/30/2010,03/28/2008,01/25/20 07 Hepatitis B (Ahwgtbt-N-Ebtji , Recombivax HB-Adult) 19yo and older 04/16/2018 [...] DX:Recurrent major depressive disorder, in partial remission ([facility]) Family History Medical History Relation Name Comments [...] 8:00 AM EST Office Visit Adult Medicine [address] [phone] Cris Montero PA [address] [place] [address] Health Maintenance Due Date Last Done Comments [...] Additional history exists IPV Vaccines Completed 11/14/2004, 04/0 03/2001, 03/04/2001, Additional history exists HPV Vaccines Completed 01/30/2010, 03/01, 01/25/2007 Varicella Vaccines Completed 03/04/2011, 0 03/02/2001, [...] LAB CHEMISTRY METHOD 07/20/2025 2:40 PM EDT [facility] Blood Venous blood specimen / Unknown Venipuncture / Unknown 07/20/2025 9:06 AM EDT 07/20/2025 9:06 AM EDT Alvaro Gallagher MD LAB BLOOD ORDERA BLES Final Result [facility] [address] [place] [address], [place] [phone] * HIV 1,2 antibody, p24 antigen with reflex to differentiation (07/20/2025 9:06 AM EDT) Pathologist [facility] HIV Combo AB/AG Negative Negative LAB CHEMISTRY METHOD 07/20/2025 2:40 PM EDT [facility] Blood Venous blood specimen / Unknown Venipuncture / Unknown 07/20/2025 9:06 AM EDT 07/20/2025 9:06 AM EDT Narrative [facility] - 07/20/2025 2:40 PM EDT This [...] MD LAB BLOOD ORDERA BLES Final Result [facility] [address] [place] [address], [place] [phone] * Treponema pallidum antibody with reflex to RPR and particle agglutination (07/20/2025 9:06 AM EDT) T. Pallidum Antibodies Negative Negative LAB CHEMISTRY METHOD 07/20/2025 2:12 PM EDT [facility] Blood Venous blood specimen / Unknown Venipuncture / Unknown 07/20/2025 9:06 AM EDT 07/20/2025 9:06 AM EDT Alvaro Gallagher MD LAB BLOOD ORDERA BLES Final Result Performing Organization Address [facility] [address] [facility] Co de Phone Number [facility] [address] [place] [address], [place] [phone] * Thyroid stimulating hormone with reflex to free t4 and free t3 (07/20/2025 9:06 AM EDT) TSH 1.62 0.40 - 4.00 mcIU/mL LAB CHEMISTRY METHOD 07/20/2025 2:02 PM EDT [facility] Blood Venous blood specimen / Unknown Venipuncture / Unknown 07/20/2025 9:06 AM EDT 07/20/2025 9:06 AM EDT us Alvaro Gallagher MD LAB BLOOD ORDERA BLES Final Result Performing Organization Address City/[facility] [address]/ZIP Co de Phone Number [facility] [address] [place] [address], [place] [phone] * Lipid panel with reflex to direct LDL (07/20/2025 9:06 AM EDT) Cholesterol 175 0 - 200 mg/dL LAB CHEMISTRY METHOD 07/20/2025 1:21 PM EDT [facility] Triglycerides 103 0 - 150 mg/dL LAB CHEMISTRY METHOD 07/20/2025 1:21 PM EDT [facility] HDL 69 >=40 mg/dL LAB CHEMISTRY METHOD 07/20/2025 1:21 PM EDT [facility] LDL Calculated 85 0 - 100 mg/dL LAB CHEMISTRY METHOD 07/20/2025 1:21 PM EDT [facility] Comment:Estimated LDL Calcul ated using equation: Total cholesterol - HDL cholesterol - (Triglycerides/5) VLDL Cholesterol Nima 20.6 mg/dL LAB CHEMISTRY METHOD 07/20/2025 1:21 PM EDT [facility] Non HDL Chol. (LDL+VLDL) 106 <145 mg/dL LAB CHEMISTRY METHOD 07/20/2025 1:21 PM EDT [facility] Chol/HDL Ratio 2.5 0.0 - 4.4 LAB CHEMISTRY METHOD 07/20/2025 1:21 PM T [facility] Blood Venous blood specimen / Unknown Venipuncture / Unknown 07/20/2025 9:06 AM EDT 07/20/2025 9:06 AM EDT us Alvaro Gallagher MD LAB BLOOD ORDERA BLES Final Result [facility] [address] [place] [address], [place] [phone] * (ABNORMAL) Vitamin D 25 hydroxy (07/20/2025 9:06 AM EDT) Vit D, 25-Hydroxy 25.6(L) 30.0 - 80.0 ng/mL LAB CHEMISTRY METHOD 07/20/2025 2:[address] [facility] Blood Venous blood specimen / Unknown Venipuncture / Unknown 07/20/2025 9:06 AM EDT 07/20/2025 9:06 AM EDT Alvaro Gallagher MD LAB BLOOD ORDERA BLES Final Result [facility] [address] [place] [address], [place] [phone] * Comprehensive metabolic panel (07/20/2025 9:06 AM EDT) Sodium 138 133 - 145 mmol/L LAB CHEMISTRY METHOD 07/20/2025 1:[address] [facility] Potassium 4.0 3.5 - 5.5 mmol/L LAB CHEMISTRY METHOD 07/20/2025 1:[address] [facility] Chloride 108 96 - 110 mmol/L LAB CHEMISTRY METHOD 07/20/2025 1:[address] [facility] CO2 24 21 - 32 mmol/L LAB CHEMISTRY METHOD 07/20/2025 1:[address] [facility] Anion Gap 6 3 - 11 LAB CHEMISTRY METHOD 07/20/2025 1:[address] [facility] Glucose 81 70 - 100 mg/dL LAB CHEMISTRY METHOD 07/20/2025 1:[address] [facility] BUN 9 5 - 25 mg/dL LAB CHEMISTRY METHOD 07/20/2025 1:[address] [facility] Creatinine 0.63 0.50 - 1.10 mg/dL LAB CHEMISTRY METHOD 07/20/2025 1:[address] [facility] eGFR 123 >=60 mL/min/1. 73m2 LAB CHEMISTRY METHOD 07/20/2025 1:[address] [facility] Comment:Calculation based on the Chronic Kidney Disease Epidemiology Collaboration (CKD-EPI) equation refit without adjustment for race. BUN/Creatinine Ratio 14.3 LAB CHEMISTRY METHOD 07/20/2025 1:21 PM T [facility] Calcium 8.5 8.5 - 10.5 mg/dL LAB CHEMISTRY METHOD 07/20/2025 1:[address] [facility] AST (SGOT) 16 10 - 42 unit/L LAB CHEMISTRY METHOD 07/20/2025 1:[address] [facility] ALT (SGPT) 27 10 - 60 unit/L LAB CHEMISTRY METHOD 07/20/2025 1:[address] [facility] Alkaline Phosphatase 77 42 - 121 unit/L LAB CHEMISTRY METHOD 07/20/2025 1:[address] [facility] Total Protein 7.1 6.0 - 8.0 g/dL LAB CHEMISTRY METHOD 07/20/2025 1:[address] [facility] Albumin 3.5 3.2 - 5.0 g/dL LAB CHEMISTRY METHOD 07/20/2025 1:[address] [facility] Total Bilirubin 0.5 0.0 - 1.4 mg/dL LAB CHEMISTRY METHOD 07/20/2025 1:[address] [facility] Blood Venous blood specimen / Unknown Venipuncture / Unknown 07/20/2025 9:06 AM EDT 07/20/2025 9:06 AM EDT us Alvaro Gallagher MD LAB BLOOD ORDERA BLES Final Result [facility] [address] [place] [address], [place] [phone] * (ABNORMAL) Urinalysis with reflex microscopic (07/20/2025 9:05 AM EDT) Specific [place] Urine 1.022 1.003 - 1.030 LAB URINALYSIS - AUTOMATED METHOD 07/20/2025 10:[address] [facility] pH, Urine 5.0 5.0 - 8.0 pH LAB URINALYSIS - AUTOMATED METHOD 07/20/2025 10:[address] [facility] Leukocytes, Urine Negative Negative LAB URINALYSIS - AUTOMATED METHOD 07/20/2025 10:[address] [facility] Nitrite, Urine Negative Negative LAB URINALYSIS - AUTOMATED METHOD 07/20/2025 10:[address] [facility] Protein, Urine Negative <=Trace mg/dL LAB URINALYSIS - AUTOMATED METHOD 07/20/2025 10:[address] [facility] Glucose, Urine Negative Negative mg/dL LAB URINALYSIS - AUTOMATED METHOD 07/20/2025 10:[address] [facility] Ketones, Urine Trace(A) Negative mg/dL LAB URINALYSIS - AUTOMATED METHOD 07/20/2025 10:[address] [facility] Urobilinogen, Urine 0.2 0.2 - 1.0 mg/dL LAB URINALYSIS - AUTOMATED METHOD 07/20/2025 10:[address] [facility] Bilirubin, Urine Negative Negative LAB URINALYSIS - AUTOMATED METHOD 07/20/2025 10:[address] [facility] Blood, Urine Negative Negative LAB URINALYSIS - AUTOMATED METHOD 07/20/2025 10:[address] [facility] Urine Urine specimen obtained by clean catch procedure / Unknown Non-blood Collection / Unknown 07/20/2025 9:05 AM EDT 07/20/2025 9:06 AM EDT us Alvaro Gallagher MD LAB URINE ORDERA BLES Final Result [facility] [address] [place] [address], [place] [phone] * Culture urine (07/20/2025 9:05 AM EDT) Culture, Urine No growth 07/21/2025 9:57 AM EDT [facility] Urine Urine specimen obtained by clean catch procedure / Unknown Non-blood Collection / Unknown 07/20/2025 9:05 AM EDT 07/20/2025 9:06 AM EDT Alvaro Gallagher MD LAB MICROBIOLOGY - GENERAL ORDERABLES Final Result [facility] [address] [place] [address], [place] [phone] from Last 3 Months Insurance [facility] Care Teams Blade Balancer Relationship Specialty Start Date End Date Alvaro Gallagher MD [address] [place] [address] PCP - General Internal Medicine 07/07/25
--- OUTSIDE RECORDS SUMMARY | 2025-10-10 08:14 | XMS_ITS | Encounter Summary ---
Author Organization [facility] Address [address] [place] [address] Care Team Providers Care Help Desk Administrator Name Role Phone Zaria Montejo MD Primary Care Provider U Alvaro Rudolph MD Primary Care Provider + Reason for Referral * EXTERNAL (Priority) - Authorized/Booked Specialty Diagnoses / Procedures Referred By Contact Referred To Contact Obstetrics/Gynecology / Obstetrics & Gynecology Procedures REFERRAL TO OBSTETRICS & GYNECOLOGY Zaria Montejo MD [address] [place] [id number] [place] [address] Referral ID Status Reason Start Date Expiration Date V isits Requested Visits Authorized [id number] Authorized/B ooked 09/25/2021 12/27/2021 1 1 Encounter Details Date Type Department Care Team Description 09/25/2021 Pt. Non Urgent Medical Question Adult Medicine [address] [address] Zaria Montejo MD Social History Tobacco Use Types Packs/Day Years Used Date Smoking Tobacco: Never Smokeless Tobacco: Never Alcohol Use Standard Drinks/Week Comments Yes 0 (1 standard drink = 0.6 oz pur e alcohol) occasional drinker Sex Assigned at Date Recorded Not on file documented as of this encounter Miscellaneous Notes * Telephone Encounter - aSndy Holt M.A. - 09/25/2021 11:19 AM EDTFrom: Gale Cash To: Cong Carson Sent: 09/25/2021 10:15 AM EDT Subject: Referral request Good morning! My partner and I have been trying to conceive for several months now and I just got a positive urine test reading. I would like to be seen at [facility] midwifery and OBGYN for care. They told me I need a referral from my PCP before they can see me. Can you please amanda ce a referral? Thanks! documented in this encounter Plan of Treatment Not on file documented as of this encounter Visit Diagnoses Not on filedocumented in this encounter Care Teams Help Desk Administrator Relationship Specialty Start Date End Date Zaria Montejo MD PCP - General Internal Medicine 12/01/1812/25 Alvaro Gallagher MD [address] [place] [address] PCP - General Internal Medicine 12/26/22 documented as of this encounter
--- OUTSIDE RECORDS SUMMARY | 2025-10-10 08:14 | XMS_ITS | Encounter Summary ---
Author Organization [facility] Address [address] [place] [address] Care Team Providers Care General Farm Manager Name Role Phone Zaria Montejo MD Primary Care Provider U Alvaro Rudolph MD Primary Care Provider + Encounter Details Date Type Department Care Team Description 04/26/2021 Pt. Non Urgent Medical Question Adult Medicine - [address] [address] Zaria Montejo MD Social History Tobacco Use [...] PM EDT documented as of this encounter Miscellaneous Notes * Telephone Encounter - Keya Peraza M.A. - 04/26/2021 3:24 PM EDTFrom: Gale Cash To: Cong Carson Sent: 04/26/2021 3:09 PM EDT Subject: Last Visit If you could review my last visit notes, I would greatly appreciate it. I feel as though I wasn't listened to and that I was shrugged off. Multiple aspects of the note are incorrect. I never had Osteomyelitis, I never saw an swat team member, I have not gained weight since my last visit, in fact I lost weight. From the moment he came in e room, he lead with the fact that I have a Hx of anxiety and depression. I repeatedly explained that it is well controlled and I don't feel stressed but all he wanted to talk about was my past mental health. I felt very insulted and not listened to as well as frustrated. What I am experiencing is not a headache. I am having these sharp spasms on the left side of my head that last for seconds at a time, always in the same spot and head pressure. The pressure does not hurt, it does not feel like a headache. I am also having other physical Sx. He did refer me to neurology but after reading his note that is inaccurate, I felt that I should bring it to your attention. I don't want it in my chart if it isn't true. documented in this encounter Plan of Treatment Not on file documented as of this encounter Visit Diagnoses Not on filedocumented in this encounter Care Teams General Farm Manager Relationship Specialty Start Date End Date Zaria Montejo MD PCP - General Internal Medicine 12/01/1812/25 Alvaro Gallagher MD [address] [place] [address] PCP - General Internal Medicine 12/26/22 documented as of this encounter
--- OUTSIDE RECORDS SUMMARY | 2025-10-10 08:14 | XMS_ITS | Encounter Summary ---
Author Organization [facility] Address [address] [place] [address] Care Team Providers Care Cargo Inspector Name Role Phone Zaria Montejo MD Primary Care Provider U Alvaro Rudolph MD Primary Care Provider + Reason for Visit * Reason Onset Date Comments Follow-up Appt Unavailable 06/12/2021 Encounter Details Date Type Department Care Team Description 06/12/2021 Telephone Pulmonology - [place] [address] [phone] Lakshmi Swanson APRN [address] [phone] Follow-up Appt Unavailable Social History Tobacco Use [...] on filedocumented in this encounter Care Teams Cargo Inspector Relationship Specialty Start Date End Date Zaria Montejo MD PCP - General Internal Medicine 12/01/1812/25 Alvaro Gallagher MD [address] [place] [phone] PCP - General Internal Medicine 12/26/22 documented as of this encounter
--- OUTSIDE RECORDS SUMMARY | 2025-10-10 08:14 | XMS_ITS | Encounter Summary ---
Author Organization [facility] Address [address] [place] [address] Care Team Providers Care Centrex Radio Operator Name Role Phone Zaria Montejo MD Primary Care Provider U Alvaro Rudolph MD Primary Care Provider + Encounter Details Date Type Department Care Team Description 05/09/2022 [facility] Medical Records [address] [place] [phone] Abstract, Provider Social History Tobacco Use Types [...] on filedocumented in this encounter Care Teams Centrex Radio Operator Relationship Specialty Start Date End Date Zaria Montejo MD PCP - General Internal Medicine 12/01/1812/25 Alvaro Gallagher MD [address] [place] [id number] PCP - General Internal Medicine 12/26/22 documented as of this encounter
--- NOTE | 2025-10-10 08:15 | ECG_ITS ---
Test Reason : Z13.6 Blood Pressure : */* mmHG Vent. Rate : 80 BPM Atrial Rate : 80 BPM P-R Int : 154 ms QRS Dur : 78 ms QT Int : 374 ms P-R-T Axes : 54 58 47 degrees QTcB Int : 431 ms Normal sinus rhythm Normal ECG No previous ECGs available Referred By: Crystal Ocasiospoon Electronically Signed By: RICH IRIZARRY MD
== END ==
LOC: HO.CARD 08:07
PROVIDERS: Visit Provider Nurse Practitioner Family
DX: Z13.6 Encounter for screening for cardiovascular disorders (principal)
CPT/HCPCS: 93005

== ENCOUNTER → 2025-10-10 08:15 | Outpatient (BNV) | payer OTHER, SELFPAY | PROVIDERS: Visit Provider Internal Medicine Cardiovascular Disease | DX: Z13.6 Encounter for screening for cardiovascular disorders (principal) | CPT/HCPCS: 93010 ==

== ENCOUNTER 2025-10-24 08:27 | Outpatient (REF) | payer OTHER, SELFPAY ==
--- OUTSIDE RECORDS SUMMARY | 2025-10-19 08:19 | XMS_ITS | Encounter Summary ---
Author Organization [facility] Address [address] [place] [address] Care Team Providers Care Program Review Director Name Role Phone Alvaro Gallagher MD Primary Care Pr ovid Reason for Referral * Consultation (Routine) - Pending Review Specialty Diagnoses / Procedures Referred By Godfrey prakash Referred To Contact Gynecology Saeid Tavares MD [address] [place] [address] Phone: tel: fax: Referral ID Status Reason Start Date Expiration Date Visits Requested Visits Authorized [id number] Pending Review Specialty Services Required 5 10/19/2026 1 1 * Consultation (Routine) - Pending Review Specialty Diagnoses / Procedures Referred By Godfrey prakash Referred To Contact Gynecology Saeid Tavares MD [address] [place] [phone] Phone: tel: fax: [facility]/OB-PATIENT SERVICE SPECIALIST [facility] [address] [place] [address] Phone: tel: fax: Referral ID Status Reason Start Date Expiration Date Visits Requested Visits Authorized [id number] Pending Review Specialty Services Required 5 10/19/2026 1 1 * Consultation (Routine) - Authorized Specialty Diagnoses / Procedures Referred By Contvidya t Referred To Contact Gastroenterology Diagnoses Acute abdominal pain Saeid Tavares MD [address] [place] [address] Phone: tel: fax: Gastroenterology - 299 [facility] [address] [address] Phone: tel: fax: Referral ID Status Reason Start Date Expiration Date Visits Requested Visits Authorized [id number] Authorized Specialty Services Required 10/19/2026 1 1 Reason for Visit * Reason Comments Abdominal Pain Encounter Details Date Type Department Care Team (Late st Contact Info) Description 10/19/2025 8:19 AM EST - 10/19/2025 12:19 PM EST Emergency [facility] Emergency [address] [place] [address] Saeid Tavares MD [address] [place] [address] Acute abdominal pain (Primary Dx); Acute gastritis without hemorrhage, unspecified gastritis type; Cyst of left ovary Discharge Disposition: Home or Self Care Social History Tobacco Use Types Packs/Day Years Used Date Smoking Tobacco: Never Smokeless Tobacco: Never Alcohol Use Standard Drinks/Week Comments Yes 0 (1 standard drink = 0.6 oz pur e alcohol) Comments Unknown Sex and Gender Information Value Date Recorded Sex Assigned at Not on file Legal Sex Female 5:17 PM EST Gender Identity Not on file Sexual Orientation Not on file documented as of this encounter Last Filed Vital Signs Vital Sign Reading Time Taken Comments Blood Pressure 116/68 10/19/2025 10:40 AM EST Pulse 70 10/19/2025 10:40 AM EST Temperature 36.8 C (98.2 F) 10/19/2025 8:10 AM EST Respiratory Rate 16 10/19/2025 10:40 AM EST Oxygen Saturation 98% 10/19/2025 10:40 AM EST Inhaled Oxygen Concentration - - Weight 86.2 kg (190 lb) 10/19/2025 8:10 AM EST Height 157.5 cm (5' 2 ) 10/19/2025 8:10 AM EST Body Mass Index 34.75 10/19/2025 8:10 AM EST documented in this encounter Discharge Instructions * Attachments The following attachments cannot be sent through Care Everywhere. * Abdominal Pain ([place]) * Gastritis ([place]) * Ovarian Cyst: Ruptured ([place]) documented in this encounter Medications at Time of Discharge acetaminophen (TYLENOL) 500 mg tablet Take 1 tablet (500 mg total) by mouth every 6 (six) hours if needed for mild pain for up to 12 doses. 12 tablet 10/19/2025 escitalopram (LEXAPRO) 20 mg tabletIndications:An xiety and depression Take 0.5 tablets (10 mg total) by mouth 1 (one) time each day for 7 days, THEN 1 tablet (20 mg total) 1 (one) time each day. 184 each 07/20/2025 6 Falmina, 28, 0.1-20 mg-mcg per tablet Take 1 tablet by mouth daily. 06/05/2025 omeprazole (PriLOSEC) [address] capsule Take 1 capsule (20 mg total) by mouth 1 (one) time each day. Do not crush or chew. 30 each 10/19/2025 5 ondansetron ODT (ZOFRAN-ODT) 4 mg disintegrating tablet Dissolve 1 tablet (4 mg total) on top of the tongue every 8 (eight) hours if needed for nausea or vomiting for up to 12 doses. Let 1 tablet dissolve under the tongue three times daily as needed for nausea or vomiting. 12 tablet 10/19/2025 documented as of this encounter Ordered Prescriptions Prescription Sig Dispense Quantity Refills Last Filled Start Date End Date omeprazole (PriLOSEC) [address] capsule Take 1 capsule (20 mg total) by mouth 1 (one) time each day. Do not crush or chew. 30 each 10/19/2025 5 ondansetron ODT (ZOFRAN-ODT) 4 mg disintegrating tablet Dissolve 1 tablet (4 mg total) on top of the tongue every 8 (eight) hours if needed for nausea or vomiting for up to 12 doses. Let 1 tablet dissolve under the tongue three times daily as needed for nausea or vomiting. 12 tablet 10/19/2025 acetaminophen (TYLENOL) 500 mg tablet Take 1 tablet (500 mg total) by mouth every 6 (six) hours if needed for mild pain for up to 12 doses. 12 tablet 10/19/2025 documented in this encounter Discharge Disposition Disposition Code Departure Means Destination Comment s Home or Self Care documented in this encounter Progress Notes * Melissa Mariscal RN - 10/19/2025 8:09 AM EST Pt comes to ED due to RUQ abd pain that began this am. Pt sts it began this am. Pain is constant but gets worse at times. Pt has hx of . * Saeid Tavares MD - 10/19/2025 8:08 AM EST HPI Chief Complaint Patient presents with Abdominal Pain Gale is a pleasant 30-year-old woman who presents with right upper quadrant abdominal pain whichwoke her up from sleep at 5 AM this morning. No fevers. Patient states that for some time now she has noticed right upper quadrant pain, after eating food, especially after eating fatty foods. Yesterday she went to a barbecue with ribs and mac & cheese. No data recorded Patient History Medical History[1] Surgical History[2] Family History[3] Social History Tobacco Use Smoking status: Never Smokeless tobacco: Never Substance Use Topics Alcohol use: Yes Drug use: No Review of Systems Review of Systems All other systems reviewed and are negative. Physical Exam ED Triage Vitals [10/19/25 0810] Temp Heart Rate Resp BP 36.8 ??C (98.2 ??F) 93 16 (!) 135/95 SpO2 Temp src Heart Rate Source Patient Position 99 % -- -- Sitting BP Location FiO2 (%) Left arm -- Physical Exam Constitutional: Appearance: Normal appearance. HENT: Head: Normocephalic and atraumatic. Nose: Nose normal. Mouth/Throat: Mouth: Mucous membranes are moist. Eyes: Extraocular Movements: Extraocular movements intact. Conjunctiva/sclera: Conjunctivae normal. Pupils: Pupils are equal, round, and reactive to light. Cardiovascular: Rate and Rhythm: Normal rate. Pulses: Normal pulses. Pulmonary: Effort: Pulmonary effort is normal. No respiratory distress. Breath sounds: Normal breath sounds. Abdominal: General: Abdomen is flat. Palpations: Abdomen is soft. Comments: Epigastric and right upper quadrant tenderness to palpation. Musculoskeletal: General: No deformity. Normal range of motion. Cervical back: Normal range of motion and neck supple. Skin: General: Skin is warm and dry. Neurological: General: No focal deficit present. Mental Status: She is alert and oriented to person, place, and time. Psychiatric: Mood and Affect: Mood normal. Behavior: Behavior normal. Lab Results I ordered and reviewed: Labs Reviewed CBC WITH AUTO DIFFERENTIAL - Abnormal Result Value WBC 7.3 RBC 4.50 Hemoglobin 12.2 Hematocrit 37.3 MCV 83.3 MCH 27.2 MCHC 32.7 RDW 13.6 Platelets 257 MPV 9.2 NRBC 0.0 NRBC Absolute 0.00 Neutrophils Relative 68.9 Lymphocytes Relative 24.5 Monocytes Relative 5.1 Eosinophils Relative 0.1 Basophils Relative 0.4 Immature Granulocytes Relative 1.0 Neutrophils Absolute 5.03 Lymphocytes Absolute 1.79 Monocytes Absolute 0.37 Eosinophils Absolute 0.01 Basophils Absolute 0.03 Immature Granulocytes Absolute 0.07 (*) URINALYSIS WITH REFLEX MICROSCOPIC - Abnormal Specific Gould Urine 1.031 (*) pH, Urine 5.5 Leukocytes, Urine Negative Nitrite, Urine Negative Protein, Urine Trace Glucose, Urine Negative Ketones, Urine Trace (*) Urobilinogen, Urine 1.0 Bilirubin, Urine Negative Blood, Urine Negative COMPREHENSIVE METABOLIC PANEL - Normal Sodium 139 Potassium 4.1 Chloride 104 CO2 26 Anion Gap 9 Glucose 95 BUN 13 Creatinine 0.66 eGFR 122 BUN/Creatinine Ratio 19.7 Calcium 8.8 AST (SGOT) 20 ALT (SGPT) 36 Alkaline Phosphatase 80 Total Protein 7.0 Albumin 4.0 Total Bilirubin 0.5 LIPASE - Normal Lipase 32 HCG QUALITATIVE, URINE - Normal Preg Test, Ur Negative HCG, SERUM, QUALITATIVE - Normal hCG Qual Negative CBC AND DIFFERENTIAL Narrative: The following orders were created for panel order CBC and differential. Procedure Abnormality Status --------- ------ CBC auto differential[[id number]] Abnormal Final result Please view results for these tests on the individual orders. URINALYSIS WITH REFLEX MICROSCOPIC Narrative: The following orders were created for panel order Urinalysis with reflex microscopic ([id number]). Procedure Abnormality Status --------- ------ Urinalysis with reflex ...[[id number]] Abnormal Final result Please view results for these tests on the individual orders. POC , URINE DIAGNOSTIC HCG, Ur POC Negative POC hCG Int QC Pass? Yes Radiology Results CT Abdomen Pelvis w Contrast Final Result Crenulated 14 mm left ovarian cyst. This could be a cause for left pelvic pain. No abnormality to suggest an etiology for right upper quadrant pain. -------- FINAL REPORT -------- Dictated By: Taurus Woo Dictated Date: 10/19/2025 10:40 ET Assigned Physician: Taurus Woo Reviewed and Electronically Signed By: Taurus Woo Signed Date: 10/19/2025 10:46 ET Workstation ID: [id number] Transcribed By: Self Edit Transcribed Date: 10/19/2025 10:40 ET US Abdomen Limited Final Result No acute findings. Possible mild hepatic steatosis. -------- FINAL REPORT -------- Dictated By: Taurus Woo Dictated Date: 10/19/2025 09:22 ET Assigned Physician: Taurus Woo Reviewed and Electronically Signed By: Taurus Woo Signed Date: 10/19/2025 09:25 ET Workstation ID: [id number] Transcribed By: Self Edit Transcribed Date: 10/19/2025 09:22 ET I personally reviewed the patient's images and agree with radiologist interpretation unless otherwise noted here or in ED course or MDM section ED Course & MDM Clinical Impressions as of 10/19/25 1142 Acute abdominal pain Acute gastritis without hemorrhage, unspecified gastritis type Cyst of left ovary I ordered the following medications: Medications sodium chloride 0.9 % bolus 1,000 mL (0 mL intravenous Stopped 10/19/25 1020) ondansetron (PF) (ZOFRAN) injection 4 mg (4 mg intravenous Given 10/19/25 0855) HYDROmorphone (DILAUDID) injection 1 mg (1 mg intravenous Given 10/19/25 0856) sodium chloride 0.9 % flush 10 mL (10 mL intravenous Given 10/19/25 1023) iopamidoL (ISOVUE-370) 370 mg iodine /mL (76 %) injection 90 mL (90 mL intravenous Given 10/19/25 1023) Medical Decision Making Differential diagnoses considered: Acute intra-abdominal pathology, biliary pathology, cholecystitis, cholangitis, choledocholithiasis, biliary colic, gastritis, peptic ulcer disease, ovarian cyst, ovarian torsion, appendicitis. Patient presents with right upper quadrant/epigastric pain. However, her biliary workup was reassuring. No sonographic Atkinson's on ultrasound no gallstones, no gallbladder tenderness. No elevation incholestatic labs. Doubt acute cholangitis, doubt choledocholithiasis, doubt acute cholecystitis . Possibly gastritis, I gave patient course of omeprazole, advised patient to avoid caffeine, alcohol, NSAIDs, nicotine. Advised patient to follow-up with gastroenterology for upper endoscopy and H. pylori testing. Patient voiced understand agreement. Incidental finding of left ovarian cyst, patient is nontender in this area, no subjective pelvic pain. Doubt ovarian torsion. Advise follow-up with gynecology I discussed the risk of malignancy. Patient voiced understanding agreement. I reevaluation, patient feels improved, states she feels ready go home. Discharged in stable condition with return precautions. Procedures DISPOSITION/PLAN Discharge 10/19/2025 11:36:19 AM The following medications were prescribed in order to continue the patient's treatment as an outpatient if they ultimately can be safely discharged: Your medication list START taking these medications Instructions Last Dose Given Next Dose Due acetaminophen 500 mg tablet Commonly known as: TYLENOL Take 1 tablet (500 mg total) by mouth every 6 (six) hours if needed for mild pain for up to 12 doses. omeprazole [address] capsule Commonly known as: PriLOSEC Take 1 capsule (20 mg total) by mouth 1 (one) time each day. Do not crush or chew. ondansetron ODT 4 mg disintegrating tablet Commonly known as: ZOFRAN-ODT Dissolve 1 tablet (4 mg total) on top of the tongue every 8 (eight) hours if needed for nausea or vomiting for up to 12 doses. Let 1 tablet dissolve under the tongue three times daily as needed for nausea or vomiting. ASK your doctor about these medications Instructions Last Dose Given Next Dose Due escitalopram 20 mg tablet Commonly known as: LEXAPRO Start taking on: July 20, 2025 Take 0.5 tablets (10 mg total) by mouth 1 (one) time each day for 7 days, THEN 1 tablet (20 mg total) 1 (one) time each day. Falmina (28) 0.1-20 mg-mcg per tablet Generic drug: levonorgestrel-ethinyl estradiol Take 1 tablet by mouth daily. Where to Get Your Medications These medications were sent to [facility]/pharmacy #[id number] - [place], [place] - [address] [place] [id number] Hours: 24-hours acetaminophen 500 mg tablet omeprazole [address] capsule ondansetron ODT 4 mg disintegrating tablet FINAL IMPRESSION DIAGNOSES: 1. Acute abdominal pain 2. Acute gastritis without hemorrhage, unspecified gastritis type 3. Cyst of left ovary I stressed the importance of prompt follow-up was stressed to the patient and they were advised to follow-up as below, I advised patient to return immediately to the Emergency Department with any worsening or concerning symptoms or if the patient is unable to follow up. The patient voiced understanding and agreement with plan for treatment, plan for follow up, and return precautions. Follow up with: Alvaro Gallagher MD [address] [place] [phone] Call in 1 day Gastroenterology - [address] [place] [address] [phone] [facility] Women's Health/OB-PATIENT SERVICE SPECIALIST - [place] [address] [facility] [address] Saeid Tavares MD (electronically signed) 11:46 AM EST 10/19/25 [1] Past Medical History: Diagnosis Date Allergic rhinitis 01/24/2019 DX:Allergic rhinitis Anxiety 01/24/2019 DX:Anxiety Depression 01/24/2019 DX:Depression JULIO (iron deficiency anemia) DX:JULIO (iron deficiency anemia) Recurrent major depressive disorder, in partial remission (CMS/HCC V24) 12/28/2019 DX:Recurrent major depressive disorder, in partial remission (HCC) [2] Past Surgical History: Procedure Laterality Date SECTION PROCEDURE: HISTORICAL ; COMMENT: 2015 and 2021 [3] Family History Problem Relation Name Age of Onset Hypertension Mother Nephrolithiasis Mother Hypertension, Anxiety/Depression, Anemia Depression Father Drug Abuse, Anxiety/Depression Bipolar disorder Sister Other (Other: autism) Brother Lung cancer Uncle Other (Other: smoker) Uncle Breast cancer Other bilateral breast cancer at age 54. Lung cancer Other Colon cancer Neg Hx Ovarian cancer Neg Hx Pancreatic cancer Neg Hx Saeid Tavares MD 10/19/25 1146 documented in this encounter Plan of Treatment Upcoming Encounters Date Type Department Care Team (Late st Contact Info) Description 01/23/2026 8:00 AM EST Office Visit Adult Medicine [address] [phone] Cris Montero PA [address] [place] [address] 06/20/2026 8:40 AM EDT Consult Gastroenterology - [address] [phone] Maryjane Sebastian NP [address] [address] Scheduled Referrals Name Type Priority Associated Diagnoses Order Schedule Ambulatory referral to Gastroenterology Outpatient Referral Routine 1 Occurrences starting 10/19/2025 until 10/19/2026 Ambulatory referral to Gynecology Outpatient Referral Routine 1 Occurrences starting 10/19/2025 until 10/19/2026 Ambulatory referral to Gynecology Outpatient Referral Routine 1 Occurrences starting 10/19/2025 until 10/19/2026 documented as of this encounter Procedures Procedure Name Priority Date/Time Associated Diagnosis Comments CT ABDOMEN PELVIS W CONTRAST STAT 10/19/2025 10:39 AM EST US ABDOMEN LIMITED STAT 10/19/2025 9: 13 AM EST POC , URINE DIAGNOSTIC STAT 10/19/2025 8:58 AM EST URINALYSIS WITH REFLEX MICROSCOPIC STAT 10/19/2025 8:52 AM EST URINALYSIS WITH REFLEX MICROSCOPIC STAT 10/19/2025 8:52 AM EST HCG QUALITATIVE, URINE STAT 8:52 AM EST CBC WITH AUTO DIFFERENTIAL STAT 10/19/2025 8:47 AM EST CBC AND DIFFERENTIAL STAT 10/19/2025 8:47 AM EST HCG, SERUM, QUALITATIVE STAT 10/19/2025 8:47 AM EST LIPASE STAT 10/19/2025 8:47 AM EST COMPREHENSIVE METABOLIC PANEL STAT 10/19/2025 8:47 AM EST documented in this encounter Results * CT Abdomen Pelvis w Contrast (10/19/2025 10:39 AM EST) Anatomical Region Laterality Modality Body Computed Tomogra phy 10/19/2025 10:4 0 AM EST Impressions 10/19/2025 10:46 AM EST Crenulated 14 mm left ovarian cyst. This could be a cause for left pelvic pain. No abnormality to suggest an etiology for right upper quadrant pain. -------- FINAL REPORT -------- Dictated By: Taurus Woo Dictated Date: 10/19/2025 10:40 ET Assigned Physician: Taurus Woo Reviewed and Electronically Signed By: Taurus Woo Signed Date: 10/19/2025 10:46 ET Workstation ID: [id number] Transcribed By: Self Edit Transcribed Date: 10/19/2025 10:40 ET Narrative 10/19/2025 10:46 AM EST PROCEDURE: Contrast enhanced CT of the abdomen and pelvis. HISTORY: Abd pain, unspecified Right upper quadrant abdominal pain, assess for biliary pathology. COMPARISON: Same-day ultrasound. TECHNIQUE: Contrast-enhanced CT of the abdomen and pelvis with coronal and sagittal reformats. IV contrast dose: 90 mL ISOVUE-370. Dose length product: 1128 mGy-cm. FINDINGS: Lung bases: Normal. Cardiac: Normal heart size. No coronary artery calcification. Liver: Focal fatty infiltration along the intersegmental fissure. Biliary: Normal gallbladder and biliary tree. Pancreas: Normal. Spleen: Normal. Adrenal glands: Normal. Kidneys: Normal. Normal appearance of the ureters. Retroperitoneum: No mass or adenopathy. Abdominal vasculature: Normal. Bowel/mesentery: No obstruction or adenopathy. No mass or ascites. Normal appendix. Abdominal wall: Normal. Pelvic nodes: No adenopathy. Pelvic organs: Crenulated 14 mm rim-enhancing left ovarian cyst. Small amount of free fluid in the pelvis, within physiologic limits. Bones: Normal. Procedure Note Taurus Woo MD - 10/19/2025 PROCEDURE: Contrast enhanced CT of the abdomen and pelvis. HISTORY: Abd pain, unspecified Right upper quadrant abdominal pain, assess for biliary pathology. COMPARISON: Same-day ultrasound. TECHNIQUE: Contrast-enhanced CT of the abdomen and pelvis with coronal andsagittal reformats. IV contrast dose: 90 mL ISOVUE-370. Dose length product: 1128 mGy-cm. FINDINGS: Lung bases: Normal. Cardiac: Normal heart size. No coronary artery calcification. Liver: Focal fatty infiltration along the intersegmental fissure. Biliary: Normal gallbladder and biliary tree. Pancreas: Normal. Spleen: Normal. Adrenal glands: Normal. Kidneys: Normal. Normal appearance of the ureters. Retroperitoneum: No mass or adenopathy. Abdominal vasculature: Normal. Bowel/mesentery: No obstruction or adenopathy. No mass or ascites.Normal appendix. Abdominal wall: Normal. Pelvic nodes: No adenopathy. Pelvic organs: Crenulated 14 mm rim-enhancing left ovarian cyst. Smallamount of free fluid in the pelvis, within physiologic limits. Bones: Normal. IMPRESSION: Crenulated 14 mm left ovarian cyst. This could be a cause for left pelvicpain. No abnormality to suggest an etiology for right upper quadrant pain. -------- FINAL REPORT -------- Dictated By: Taurus Woo Dictated Date: 10/19/2025 10:40 ET Assigned Physician: Taurus Woo Reviewed and Electronically Signed By: Taurus Woo Signed Date: 10/19/2025 10:46 ET Workstation ID: [id number] Transcribed By: Self Edit Transcribed Date: 10/19/2025 10:40 ET us Saeid Tavares MD IMG CT PROCEDURES Final Res ult * US Abdomen Limited (10/19/2025 9:13 AM EST) Anatomical Region Laterality Modality Body Ultrasound 10/19/2025 9:22 AM EST Impressions 10/19/2025 9:25 AM EST No acute findings. Possible mild hepatic steatosis. -------- FINAL REPORT -------- Dictated By: Taurus Woo Dictated Date: 10/19/2025 09:22 ET Assigned Physician: Taurus Woo Reviewed and Electronically Signed By: Taurus Woo Signed Date: 10/19/2025 09:25 ET Workstation ID: [id number] Transcribed By: Self Edit Transcribed Date: 10/19/2025 09:22 ET Narrative 10/19/2025 9:25 AM EST PROCEDURE: Right upper quadrant ultrasound. HISTORY: RUQ pain, cholecystitis suspected right upper quad abdominal pain, assess for biliary pathology. COMPARISON: 03/19/2022. TECHNIQUE: Grayscale, color Doppler, and spectral Doppler ultrasound evaluation of the right upper quadrant of the abdomen. FINDINGS: LIVER: Slightly echogenic parenchyma. No focal lesion. Normal flow in the main portal vein. BILIARY: Normal gallbladder. Negative sonographic Atkinson sign. Normal caliber biliary tree with no ductal filling defect. PANCREAS: Visualized portions are normal. RIGHT KIDNEY: Normal size and echotexture. No hydronephrosis or focal lesion. Procedure Note Taurus Woo MD - 10/19/2025 PROCEDURE: Right upper quadrant ultrasound. HISTORY: RUQ pain, cholecystitis suspected right upper quad abdominal pain, assess for biliary pathology. COMPARISON: 03/19/2022. TECHNIQUE: Grayscale, color Doppler, and spectral Doppler ultrasoundevaluation of the right upper quadrant of the abdomen. FINDINGS: LIVER: Slightly echogenic parenchyma. No focal lesion. Normal flow inthe main portal vein. BILIARY: Normal gallbladder. Negative sonographic Atkinson sign. Normalcaliber biliary tree with no ductal filling defect. PANCREAS: Visualized portions are normal. RIGHT KIDNEY: Normal size and echotexture. No hydronephrosis or focallesion. IMPRESSION: No acute findings. Possible mild hepatic steatosis. -------- FINAL REPORT -------- Dictated By: Taurus Woo Dictated Date: 10/19/2025 09:22 ET Assigned Physician: Taurus Woo Reviewed and Electronically Signed By: Taurus Woo Signed Date: 10/19/2025 09:25 ET Workstation ID: [id number] Transcribed By: Self Edit Transcribed Date: 10/19/2025 09:22 ET Saeid Tavares MD IMG US PROCEDURES Final Res ult * POC , urine manually resulted (10/19/2025 8:58 AM EST) [facility] HCG, Ur POC Negative Negative POC hCG Int QC Pass? Yes Yes Urine Urine specimen obtained by clean catch procedure / Unknown 10/19/2025 8:58 AM EST Saeid Tavares MD POINT OF CARE TEST ENTER/ED IT ORDERABLES Final Result * (ABNORMAL) Urinalysis with reflex microscopic (10/19/2025 8:52 AM EST) [facility] Specific Gould Urine 1.031(H) 1.003 - 1.030 LAB URINALYSIS - AUTOMATED METHOD 10/19/2025 9:05 AM [facility] LAB pH, Urine 5.5 5.0 - 8.0 pH LAB URINALYSIS - AUTOMATED METHOD 10/19/2025 9:05 AM [facility] Leukocytes, Urine Negative Negative LAB URINALYSIS - AUTOMATED METHOD 10/19/2025 9:05 AM [facility] Nitrite, Urine Negative Negative LAB URINALYSIS - AUTOMATED METHOD 10/19/2025 9:05 AM [facility] Protein, Urine Trace <=Trace mg/dL LAB URINALYSIS - AUTOMATED METHOD 10/19/2025 9:05 AM [facility] Glucose, Urine Negative Negative mg/dL LAB URINALYSIS - AUTOMATED METHOD 10/19/2025 9:05 AM [facility] Ketones, Urine Trace(A) Negative mg/dL LAB URINALYSIS - AUTOMATED METHOD 10/19/2025 9:05 AM [facility] Urobilinogen, Urine 1.0 0.2 - 1.0 mg/dL LAB URINALYSIS - AUTOMATED METHOD 10/19/2025 9:05 AM [facility] Bilirubin, Urine Negative Negative LAB URINALYSIS - AUTOMATED METHOD 10/19/2025 9:05 AM [facility] Blood, Urine Negative Negative LAB URINALYSIS - AUTOMATED METHOD 10/19/2025 9:05 AM [facility] Urine Urine specimen obtained by clean catch procedure / Unknown Non-blood Collection / Unknown 10/19/2025 8:52 AM EST 10/19/2025 8:58 AM EST us Saeid Tavares MD LAB URINE ORDERABLES Final Result [facility] [address] [place] [address], * , Urine (10/19/2025 8:52 AM EST) Preg Test, Ur Negative Negative 10/19/2025 9:06 AM [facility] Urine Urine specimen obtained by clean catch procedure / Unknown Non-blood Collection / Unknown 10/19/2025 8:52 AM EST 10/19/2025 8:58 AM EST us Saeid Tavares MD LAB URINE ORDERABLES Final Result [facility] [address] [place] [address], * hCG Qualitative (10/19/2025 8:47 AM EST) [facility] hCG Qual Negative Negative 10/19/2025 9:35 AM [facility] Blood Venous blood specimen / Unknown Venipuncture / Unknown 10/19/2025 8:47 AM EST 10/19/2025 8:59 AM EST Saeid Tavares MD LAB BLOOD ORDERABLES Final Result Performing Organization Address City/[facility]/ZIP Co de Phone Number [facility] [address] [place] [address], [place] [phone] * (ABNORMAL) CBC auto differential (10/19/2025 8:47 AM EST) [facility] WBC 7.3 4.8 - 10.8 K/mcL LAB HEMETOLOGY METHOD 10/19/2025 9:03 AM [facility] RBC 4.50 3.80 - 4.80 M/mcL LAB HEMETOLOGY METHOD 10/19/2025 9:03 AM [facility] Hemoglobin 12.2 11.5 - 16.0 g/dL LAB HEMETOLOGY METHOD 10/19/2025 9:03 AM [facility] Hematocrit 37.3 35.0 - 47.0 % LAB HEMETOLOGY METHOD 10/19/2025 9:03 AM [facility] MCV 83.3 79.0 - 98.0 FL LAB HEMETOLOGY METHOD 10/19/2025 9:03 AM [facility] MCH 27.2 27.0 - 32.0 pcg LAB HEMETOLOGY METHOD 10/19/2025 9:03 AM [facility] MCHC 32.7 32.0 - 37.0 g/dL LAB HEMETOLOGY METHOD 10/19/2025 9:03 AM [facility] RDW 13.6 11.0 - 15.0 % LAB HEMETOLOGY METHOD 10/19/2025 9:03 AM [facility] Platelets 257 130 - 400 K/mcL LAB HEMETOLOGY METHOD 10/19/2025 9:03 AM [facility] MPV 9.2 7.0 - 11.0 FL LAB HEMETOLOGY METHOD 10/19/2025 9:03 AM [facility] NRBC 0.0 <1.0 % LAB HEMETOLOGY METHOD 10/19/2025 9:03 AM [facility] NRBC Absolute 0.00 <0.10 K/mcL LAB HEMETOLOGY METHOD 10/19/2025 9:03 AM [facility] Neutrophils Relative 68.9 % LAB HEMETOLOGY METHOD 10/19/2025 9:03 AM [facility] Lymphocytes Relative 24.5 % LAB HEMETOLOGY METHOD 10/19/2025 9:03 AM [facility] Monocytes Relative 5.1 % LAB HEMETOLOGY METHOD 10/19/2025 9:03 AM [facility] Eosinophils Relative 0.1 % LAB HEMETOLOGY METHOD 10/19/2025 9:03 AM [facility] Basophils Relative 0.4 % LAB HEMETOLOGY METHOD 10/19/2025 9:03 AM [facility] Immature Granulocytes Relative 1.0 % LAB HEMETOLOGY METHOD 10/19/2025 9:03 AM [facility] Neutrophils Absolute 5.03 1.50 - 7.00 K/mcL LAB HEMETOLOGY METHOD 10/19/2025 9:03 AM [facility] Lymphocytes Absolute 1.79 1.00 - 5.00 K/mcL LAB HEMETOLOGY METHOD 10/19/2025 9:03 AM EST [facility] Monocytes Absolute 0.37 0.20 - 1.00 K/[facility] LAB HEMETOLOGY METHOD 10/19/2025 9:03 AM EST [facility] Eosinophils Absolute 0.01 0.00 - 0.50 K/[facility] LAB HEMETOLOGY METHOD 10/19/2025 9:03 AM EST [facility] Basophils Absolute 0.03 0.00 - 0.20 K/[facility] HEMETOLOGY METHOD 10/19/2025 9:03 AM EST [facility] Immature Granulocytes Absolute 0.07(H) 0.00 - 0.03 K/[facility] LAB HEMETOLOGY METHOD 10/19/2025 9:03 AM [facility] Blood Venous blood specimen / Unknown Venipuncture / Unknown 10/19/2025 8:47 AM EST 10/19/2025 8:59 AM EST us Saeid Tavares MD LAB BLOOD ORDERABLES Final Result [facility] [address] [place] [address], [place] [phone] * Lipase (10/19/2025 8:47 AM EST) Lipase 32 12 - 53 unit/L 10/19/2025 9:47 AM EST [facility] Blood Venous blood specimen / Unknown Venipuncture / Unknown 10/19/2025 8:47 AM EST 10/19/2025 8:58 AM EST us Saeid Tavares MD LAB BLOOD ORDERABLES Final Result [facility] [address] [place] [address], [place] [phone] * Comprehensive metabolic panel (10/19/2025 8:47 AM EST) Sodium 139 133 - 145 mmol/L 10/19/2025 9:47 AM [facility] Potassium 4.1 3.5 - 5.5 mmol/L 10/19/2025 9:47 AM [facility] Chloride 104 96 - 110 mmol/L 10/19/2025 9:47 AM [facility] CO2 26 21 - 32 mmol/L 10/19/2025 9:47 AM [facility] Anion Gap 9 3 - 11 10/19/2025 9:47 AM [facility] Glucose 95 70 - 100 mg/dL 10/19/2025 9:47 AM [facility] BUN 13 5 - 25 mg/dL 10/19/2025 9:47 AM [facility] Creatinine 0.66 0.50 - 1.10 mg/dL 10/19/2025 9:47 AM [facility] eGFR 122 >=60 mL/min/1. 73m2 10/19/2025 9:47 AM [facility] Comment:Calculation based on the Chronic Kidney Disease Epidemiology Collaboration (CKD-EPI) equation refit without adjustment for race. BUN/Creatinine Ratio 19.7 10/19/2025 9:47 AM [facility] Calcium 8.8 8.5 - 10.5 mg/dL 10/19/2025 9:47 AM [facility] AST (SGOT) 20 10 - 42 unit/L 10/19/2025 9:47 AM [facility] ALT (SGPT) 36 10 - 60 unit/L 10/19/2025 9:47 AM [facility] Alkaline Phosphatase 80 42 - 121 unit/L 10/19/2025 9:47 AM [facility] Total Protein 7.0 6.0 - 8.0 g/dL 10/19/2025 9:47 AM EST [facility] Albumin 4.0 3.2 - 5.0 g/dL 10/19/2025 9:47 AM EST [facility] Total Bilirubin 0.5 0.0 - 1.4 mg/dL 10/19/2025 9:47 AM EST [facility] Blood Venous blood specimen / Unknown Venipuncture / Unknown 10/19/2025 8:47 AM EST 10/19/2025 8:58 AM EST us Saeid Tavares MD LAB BLOOD ORDERABLES Final Result [facility] [address] [place] [address], documented in this encounter Visit Diagnoses Diagnosis Acute abdominal pain- Primary Abdominal pain, unspecified site Acute gastritis without hemorrhage, unspecified gastritis type Cyst of left ovary Other and unspecified ovarian cyst documented in this encounter Administered Medications Inactive Administered Medications - up to 3 most recent administrations Medication Order MAR Action Action Date Dose Rate Site HYDROmorphone (DILAUDID) injection 1 mg 1 mg, intravenous, Once, On Micki 10/19/25 at 0836, For 1 dose Given 10/19/2025 8:56 AM EST 1 mg iopamidoL (ISOVUE-370) 370 mg iodine /mL (76 %) injection 90 mL 90 mL, intravenous, Once in imaging, Starting on Micki 10/19/25 at 1017, For 1 dose Given 10/19/2025 10:23 AM EST 90 mL ondansetron (PF) (ZOFRAN) injection 4 mg 4 mg, intravenous, Once, On Micki 10/19/25 at 0836, For 1 dose Given 10/19/2025 8:55 AM EST 4 mg sodium chloride 0.9 % bolus 1,000 mL 1,000 mL, intravenous, at 1,000 mL/hr, Administer over 1 Hours, Once, On Micki 10/19/25 at 0836, For 1 dose New Bag 10/19/2025 8:55 AM EST 1,000 mL 1000 mL/hr sodium chloride 0.9 % flush 10 mL 10 mL, intravenous, Once, On Micki 10/19/25 at 1018, For 1 dose Given 10/19/2025 10:23 AM EST 10 mL documented in this encounter Active and Recently Administered Medications Times are shown in EST. Scheduled Medication Order 10/17/2025 10/18/2025 10/19/2025 HYDROmorphone (DILAUDID) injection 1 mg (COMPLETED) 1 mg, intravenous, Once, On Micki 10/19/25 at 0836, For 1 dose 0856 (Given - Provid er: Erin Marion RN) iopamidoL (ISOVUE-370) 370 mg iodine /mL (76 %) injection 90 mL (COMPLETED) 90 mL, intravenous, Once in imaging, Starting on Micki 10/19/25 at 1017, For 1 dose 1023 (Given - Provid er: Fanny Puente) ondansetron (PF) (ZOFRAN) injection 4 mg (COMPLETED) 4 mg, intravenous, Once, On Micki 10/19/25 at 0836, For 1 dose 0855 (Given - Provid er: Erin Marion RN) sodium chloride 0.9 % bolus 1,000 mL (COMPLETED) 1,000 mL, intravenous, at 1,000 mL/hr, Administer over 1 Hours, Once, On Micki 10/19/25 at 0836, For 1 dose 0855 (New Bag - Prov ider: Erin Marion RN)1020 (Stopped - Provider: Erin Marion RN) sodium chloride 0.9 % flush 10 mL (COMPLETED) 10 mL, intravenous, Once, On Micki 10/19/25 at 1018, For 1 dose 1023 (Given - Provid er: Fanny Puente) documented in this encounter Care Teams Program Review Director Relationship Specialty Start Date End Date Alvaro Gallagher MD [address] [place] [phone] PCP - General Internal Medicine 07/07/25 documented as of this encounter
--- OUTSIDE RECORDS SUMMARY | 2025-10-24 08:46 | XMS_ITS | Clinical Summary ---
Author Organization [employer] Address [address] [facility] [address] [place] [address] Care Team Providers Care Experimental Box Tester Name Role Phone Unavailable Primary Care Provider Unavailabl e Allergies Active Allergy Reactions Criticality Noted Date Comments Glycol 10/06/2024 Polyethylene 10/06/2024 Polyethylene Glycol (Macrogol) Cough,Fever,Hives,P hotosensitivity,Mariano h High 10/14/2021 Other Reaction(s): Vasculitis Medications No [...] or positive test: 12/08/21. Was hospitalized at [facility], received MAB. Gestational age at diagnosis: 15 weeks ? Routine anatomy survey at 18-20 weeks ? Offer growth US at 30-32 weeks (or 2-4 weeks after infection occurring after 32 weeks) Normal growth 50% on 03/26/22 History of delivery 10/14/2021 Overview (01/25/2025): Date of surgery: 2015 Reason for : failure to progress at 5 cm Incision type: [facility] Records requested: yes, in media Posterior placenta ? No No e/o accreta on Level II U/S Delivery route counselin02/07/22 and 03/07/22 Preferred mode of delivery: Consent signed: 03/07/22 Counseled again 04/29/22. Repeat scheduled 05/07/22. Essential hypertension 07/10/2021 Vitamin D deficiency 05/06/2021 Anxiety and depression 01/24/2019 Overview (01/25/2025): -On lexapro -PCP prescribes -Will like to stay on it. Counseled on Depression 01/24/2019 Encounters Date Type Department Care Team Description 10/13/2025 1:45 PM EST Immunization [facility] [address] [place] [id number] Encounter for immunization 10/13/2025 Travel from Last 3 Months Immunizations Immunization Administration Dates Next Due Influenza, seasonal, injectable, preservative fr ee 10/13/2025,08/10/2024 Social History Tobacco Use Types Packs/Day Years [...] COVID-19 Vaccine ( season) 2025 12/20/2020, 11/22/2020 Dental X-Ray: Bitewings 12/30/2025 12/29/2024 Tobacco Screening [...] Completed 10/31/2018, 05/22/2018, 04/16/2018, Additional history exists Influenza Vaccine Completed 10/13/2025, , 08/25/2023, Additional history exists Hepatitis A Vaccines Aged [...] to Health Maintenance Insurance , [address] [place] [address] DENTAL - HSN PARTIAL (MEDICAID)
--- OUTSIDE RECORDS SUMMARY | 2025-10-24 08:46 | XMS_ITS | Clinical Summary ---
Author Organization [facility] [address] [place] [address] [place] [phone] Phone Care Team Providers Care Agriculture Technician Name Role Phone Alvaro Gallagher MD Primary Care Pr ovider Allergies Active Allergy Reactions Criticality Noted Date Comments Polyethylene Glycol Hives,Photosensitivity High 12/31 Medications Falmina, 28, 0.1-20 mg-mcg per tablet Take 1 tablet by mouth daily. 5 Active escitalopram (LEXAPRO) 20 mg tabletIndications:A nxiety and depression Take 0.5 tablets (10 mg total) by mouth 1 (one) time each day for 7 days, THEN 1 tablet (20 mg total) 1 (one) time each day. 184 each 5 01/23/20 26 Active acetaminophen (TYLENOL) 500 mg tablet Take 1 tablet (500 mg total) by mouth every 6 (six) hours if needed for mild pain for up to 12 doses. 12 tablet 5 Active ondansetron ODT (ZOFRAN-ODT) 4 mg disintegrating tablet Dissolve 1 tablet (4 mg total) on top of the tongue every 8 (eight) hours if needed for nausea or vomiting for up to 12 doses. Let 1 tablet dissolve under the tongue three times daily as needed for nausea or vomiting. 12 tablet 5 Active omeprazole (PriLOSEC) [address] capsule Take 1 capsule (20 mg total) by mouth 1 (one) time each day. Do not crush or chew. 30 each 11/18/20 25 Active Active Problems Problem Noted Date Diagnosed [...] Encounters Date Type Department Care Team Description 10/19/2025 8:19 AM EST - 10/19/2025 12:[address] [facility] [address] [place] [address] Saeid Tavares MD Acute abdominal pain (Primary Dx); Acute gastritis without hemorrhage, unspecified gastritis type; Cyst of left ovary Discharge Disposition: Home or Self Care from Last 3 Months Immunizations Immunization Administration Dates Next Due DTaP (Infanrix) 6wks to less than 7yo ,03/02/2001,08/19/1997,08/19,1996 [id number] (Pentacel) 2mo to less than 5yo 03/04/2001,1996,1996 H1N1 Inj Preservative Free 10/04/2021,01/30/2010 HPV, Quadrivalent 01/30/2010,03/28/2008,01/25/20 07 Hepatitis B (Wnyetex-G-Mssyy , Recombivax HB-Adult) 19yo and older 04/16/2018 [...] major depressive disorder, in partial remission (HCC) Family History Medical History Relation Name Comments [...] Mass Index 34.75 10/19/2025 8:10 AM EST Plan of Treatment Upcoming Encounters Date Type Department Care Team (Late st Contact Info) Description 01/23/2026 8:00 AM EST Office Visit Adult Medicine [address] [phone] Cris Montero PA [address] [place] [address] 06/20/2026 8:40 AM EDT Consult Gastroenterology - 299 [facility] [address] [phone] Maryjane Sebastian NP [address] [address] Health Maintenance Due Date Last Done Comments Cervical Cancer Screening: Pap Smear 2017 Social Influencers of Health Screening 11/01/2022 Depression Screening 11/30/2024 COVID-19 Vaccine ( season) 2025 12/20/2020, 11/22/2020 Hypertension/CHF/CAD Annual BMP Blood Test 10/19/2026 10/19/2025, 07/20/2025, 01/16/2023 Cholesterol Screening (Lipid Panel) 07/20/2030 [...] C Screening Completed 07/20/2025 , 11/13/2021, 03/25/2021 Influenza Vaccine Completed 10/13/2025, , 10/04/2021, Additional history exists Hepatitis A Vaccines Aged [...] HCG QUALITATIVE, URINE STAT 8:52 AM EST URINALYSIS WITH REFLEX MICROSCOPIC STAT 10/19/2025 8:52 AM EST HCG, SERUM, QUALITATIVE STAT 10/19/20 8:47 AM EST CBC WITH AUTO DIFFERENTIAL STAT 10/19/2025 8:47 AM EST LIPASE STAT 10/19/2025 8:47 AM EST COMPREHENSIVE METABOLIC PANEL STAT 10/19/2025 8:47 AM EST CBC AND DIFFERENTIAL STAT 10/19/2025 8:47 AM EST HEPATITIS C ANTIBODY Routine 07/20/2025 9:06 AM EDT Dysuria Screen for STD (sexually transmitted disease) HIV 1, 2 ANTIBODY, P24 ANTIGEN WITH REFLEX TO DIFFERENTIATION Routine 07/20/2025 9:06 AM EDT Dysuria Screen for STD (sexually transmitted disease) LIPID PANEL WITH REFLEX TO DIRECT LDL Routine 07/20/2025 9:06 AM EDT Essential hypertension from Last 3 Months or Most Recently Relevant to Health Maintenance Results * CT Abdomen Pelvis w Contrast [...] Signed Date: 10/19/2025 10:46 ET Workstation ID: [id number] Transcribed By: Self Edit Transcribed Date: 10/19/2025 [...] Signed Date: 10/19/2025 10:46 ET Workstation ID: [id number] Transcribed By: Self Edit Transcribed Date: 10/19/2025 10:40 ET us Saeid Tavares MD IM CT PROCEDURES Final Res ult * US [...] Signed Date: 10/19/2025 09:25 ET Workstation ID: [id number] Transcribed By: Self Edit Transcribed Date: 10/19/2025 [...] Signed Date: 10/19/2025 09:25 ET Workstation ID: [id number] Transcribed By: Self Edit Transcribed Date: 10/19/2025 09:22 ET us Saeid Tavares MD [facility] US PROCEDURES Final Res ult * POC , urine manually resulted (10/19/2025 8:58 AM EST) HCG, Ur POC Negative Negative POC hCG Int QC Pass? Yes Yes Urine Urine specimen obtained by clean catch procedure / Unknown 10/19/2025 8:58 AM EST Saeid Tavares MD POINT OF CARE TEST ENTER/ED IT ORDERABLES Final Result * (ABNORMAL) Urinalysis with reflex microscopic (10/19/2025 8:52 AM EST) Specific [place] Urine 1.031(H) 1.003 - 1.030 LAB URINALYSIS - AUTOMATED METHOD 10/19/2025 9:05 AM [facility] pH, Urine 5.5 5.0 - 8.0 pH LAB URINALYSIS - AUTOMATED METHOD 10/19/2025 9:05 AM [facility] Leukocytes, Urine Negative Negative LAB URINALYSIS - AUTOMATED METHOD 10/19/2025 9:05 AM [facility] Nitrite, Urine Negative Negative LAB URINALYSIS - AUTOMATED METHOD 10/19/2025 9:05 AM [facility] Protein, Urine Trace <=Trace mg/dL LAB URINALYSIS - AUTOMATED METHOD 10/19/2025 9:05 AM [facility] Glucose, Urine Negative Negative mg/dL LAB URINALYSIS - AUTOMATED METHOD 10/19/2025 9:05 AM [facility] Ketones, Urine Trace(A) Negative mg/dL LAB URINALYSIS - AUTOMATED METHOD 10/19/2025 9:05 AM [facility] Urobilinogen, Urine 1.0 0.2 - 1.0 mg/dL LAB URINALYSIS - AUTOMATED METHOD 10/19/2025 9:05 AM [facility] Bilirubin, Urine Negative Negative LAB URINALYSIS - AUTOMATED METHOD 10/19/2025 9:05 AM [facility] Blood, Urine Negative Negative LAB URINALYSIS - AUTOMATED METHOD 10/19/2025 9:05 AM [facility] Urine Urine specimen obtained by clean catch procedure / Unknown Non-blood Collection / Unknown 10/19/2025 8:52 AM EST 10/19/2025 8:58 AM EST us Saeid Tavares MD LAB URINE ORDERABLES Final Result Performing Organization Address City/[facility]/ZIP Co de Phone Number [facility] [address] [place] [address], [place] [phone] * , Urine (10/19/2025 8:52 AM EST) Pathologist [facility] Preg Test, Ur Negative Negative 10/19/2025 9:06 AM [facility] Urine Urine specimen obtained by clean catch procedure / Unknown Non-blood Collection / Unknown 10/19/2025 8:52 AM EST 10/19/2025 8:58 AM EST us Saeid Tavares MD LAB URINE ORDERABLES Final Result Performing Organization Address [facility]/ZIP Co de Phone Number [facility] [address] [place] [address], [place] [phone] * (ABNORMAL) CBC auto differential (10/19/2025 8:47 AM EST) [facility] WBC 7.3 4.8 - 10.8 K/mcL LAB HEMETOLOGY METHOD 10/19/2025 9:03 AM [facility] RBC 4.50 3.80 - 4.80 M[facility] LAB HEMETOLOGY METHOD 10/19/2025 9:03 AM [facility] Hemoglobin 12.2 11.5 - 16.0 g/dL LAB HEMETOLOGY METHOD 10/19/2025 9:03 AM [facility] Hematocrit 37.3 35.0 - 47.0 % LAB HEMETOLOGY METHOD 10/19/2025 9:03 AM [facility] MCV 83.3 79.0 - 98.0 FL LAB HEMETOLOGY METHOD 10/19/2025 9:03 AM [facility] MCH 27.2 27.0 - 32.0 pcg LAB HEMETOLOGY METHOD 10/19/2025 9:03 AM [facility] MCHC 32.7 32.0 - 37.0 g/dL LAB HEMETOLOGY METHOD 10/19/2025 9:03 AM [facility] RDW 13.6 11.0 - 15.0 % LAB HEMETOLOGY METHOD 10/19/2025 9:03 AM [facility] Platelets 257 130 - 400 K/mcL LAB HEMETOLOGY METHOD 10/19/2025 9:03 AM [facility] MPV 9.2 7.0 - 11.0 FL LAB HEMETOLOGY METHOD 10/19/2025 9:03 AM [facility] NRBC 0.0 <1.0 % LAB HEMETOLOGY METHOD 10/19/2025 9:03 AM [facility] NRBC Absolute 0.00 <0.10 K/mcL LAB HEMETOLOGY METHOD 10/19/2025 9:03 AM [facility] Neutrophils Relative 68.9 % LAB HEMETOLOGY METHOD 10/19/2025 9:03 AM [facility] Lymphocytes Relative 24.5 % LAB HEMETOLOGY METHOD 10/19/2025 9:03 AM [facility] Monocytes Relative 5.1 % LAB HEMETOLOGY METHOD 10/19/2025 9:03 AM [facility] Eosinophils Relative 0.1 % LAB HEMETOLOGY METHOD 10/19/2025 9:03 AM [facility] Basophils Relative 0.4 % LAB HEMETOLOGY METHOD 10/19/2025 9:03 AM [facility] Immature Granulocytes Relative 1.0 % LAB HEMETOLOGY METHOD 10/19/2025 9:03 AM [facility] Neutrophils Absolute 5.03 1.50 - 7.00 K/mcL LAB HEMETOLOGY METHOD 10/19/2025 9:03 AM EST [facility] Lymphocytes Absolute 1.79 1.00 - 5.00 [facility] LAB HEMETOLOGY METHOD 10/19/2025 9:03 AM EST [facility] Monocytes Absolute 0.37 0.20 - 1.00 K/[facility] LAB HEMETOLOGY METHOD 10/19/2025 9:03 AM EST [facility] Eosinophils Absolute 0.01 0.00 - 0.50 K[facility] LAB HEMETOLOGY METHOD 10/19/2025 9:03 AM EST [facility] Basophils Absolute 0.03 0.00 - 0.20 K[facility] LAB HEMETOLOGY METHOD 10/19/2025 9:03 AM EST [facility] Immature Granulocytes Absolute 0.07(H) 0.00 - 0.03 K[facility] LAB HEMETOLOGY METHOD 10/19/2025 9:03 AM EST [facility] Blood Venous blood specimen / Unknown Venipuncture / Unknown 10/19/2025 8:47 AM EST 10/19/2025 8:59 AM EST Saeid Tavares MD LAB BLOOD ORDERABLES Final Result [facility] [address] [place] [address], * hCG Qualitative (10/19/2025 8:47 AM EST) hCG Qual Negative Negative 10/19/2025 9:35 AM EST [facility] Blood Venous blood specimen / Unknown Venipuncture / Unknown 10/19/2025 8:47 AM EST 10/19/2025 8:59 AM EST Saeid Tavares MD LAB BLOOD ORDERABLES Final Result [facility] [address] [place] [address], [place] [phone] * Lipase (10/19/2025 8:47 AM EST) Lipase 32 12 - 53 unit/L 10/19/2025 9:47 AM [facility] Blood Venous blood specimen / Unknown Venipuncture / Unknown 10/19/2025 8:47 AM EST 10/19/2025 8:58 AM EST Saeid Tavares MD LAB BLOOD ORDERABLES Final Result [facility] [address] [place] [address], [place] [phone] * Comprehensive metabolic panel (10/19/2025 8:47 AM EST) Pathologist [facility] Sodium 139 133 - 145 mmol/L 10/19/2025 9:47 AM [facility] Potassium 4.1 3.5 - 5.5 mmol/L 10/19/2025 9:47 AM [facility] Chloride 104 96 - 110 mmol/L 10/19/2025 9:47 AM [facility] CO2 26 21 - 32 mmol/L 10/19/2025 9:47 AM [facility] Anion Gap 9 3 - 11 10/19/2025 9:47 AM [facility] Glucose 95 70 - 100 mg/dL 10/19/2025 9:47 AM [facility] BUN 13 5 - 25 mg/dL 10/19/2025 9:47 AM [facility] Creatinine 0.66 0.50 - 1.10 mg/dL 10/19/2025 9:47 AM [facility] eGFR 122 >=60 mL/min/1. 73m2 10/19/2025 9:47 AM [facility] Comment:Calculation based on the Chronic Kidney Disease Epidemiology Collaboration (CKD-EPI) equation refit without adjustment for race. BUN/Creatinine Ratio 19.7 10/19/2025 9:47 AM [facility] Calcium 8.8 8.5 - 10.5 mg/dL 10/19/2025 9:47 AM [facility] AST (SGOT) 20 10 - 42 unit/L 10/19/2025 9:47 AM [facility] ALT (SGPT) 36 10 - 60 unit/L 10/19/2025 9:47 AM [facility] Alkaline Phosphatase 80 42 - 121 unit/L 10/19/2025 9:47 AM [facility] Total Protein 7.0 6.0 - 8.0 g/dL 10/19/2025 9:47 AM [facility] Albumin 4.0 3.2 - 5.0 g/dL 10/19/2025 9:47 AM [facility] Total Bilirubin 0.5 0.0 - 1.4 mg/dL 10/19/2025 9:47 AM [facility] Blood Venous blood specimen / Unknown Venipuncture / Unknown 10/19/2025 8:47 AM EST 10/19/2025 8:58 AM EST us Saeid Tavares MD LAB BLOOD ORDERABLES Final Result [facility] [address] [place] [address], * Hepatitis C antibody (07/20/2025 9:06 AM EDT) Hepatitis C Antibody Negative Negative LAB CHEMISTRY METHOD 07/20/2025 2:40 PM EDT [facility] Blood Venous blood specimen / Unknown Venipuncture / Unknown 07/20/2025 9:06 AM EDT 07/20/2025 9:06 AM EDT us Alvaro Gallagher MD LAB BLOOD ORDERA BLES Final Result Performing Organization Address [facility]/ZIP Co de Phone Number [facility] [address] [place] [address], [place] [phone] * HIV 1,2 antibody, p24 antigen with reflex to differentiation (07/20/2025 9:06 AM EDT) [facility] HIV Combo AB/AG Negative Negative LAB CHEMISTRY METHOD 07/20/2025 2:40 PM EDT [facility] Blood Venous blood specimen / Unknown Venipuncture / Unknown 07/20/2025 9:06 AM EDT 07/20/2025 9:06 AM EDT Narrative [facility] - 07/20/2025 2:40 PM EDT This assay is a 4th generation assay allowing for earlier detection of HIV infection by detecting the presence of the HIV-1 p24 antigen as well as the traditional antibodies to HIV type 1 (including group O) and type 2. Use of a 4th generation assay is the current CDC recommendation for HIV screening. Alvaro Gallagher MD LAB BLOOD ORDERA BLES Final Result Performing Organization Address [facility]/ZIP Co de Phone Number [facility] [address] [place] [address], [place] [phone] * Lipid panel with reflex to direct LDL (07/20/2025 9:06 AM EDT) [facility] Cholesterol 175 0 - 200 mg/dL LAB CHEMISTRY METHOD 07/20/2025 1:21 PM EDT [facility] Triglycerides 103 0 - 150 mg/dL LAB CHEMISTRY METHOD 07/20/2025 1:21 PM EDT [facility] HDL 69 >=40 mg/dL LAB CHEMISTRY METHOD 07/20/2025 1:21 PM EDT [facility] LDL Calculated 85 0 - 100 mg/dL LAB CHEMISTRY METHOD 07/20/2025 1:21 PM EDT [facility] Comment:Estimated LDL Calcul ated using equation: Total cholesterol - HDL cholesterol - (Triglycerides/5) VLDL Cholesterol Nima 20.6 mg/dL LAB CHEMISTRY METHOD 07/20/2025 1:21 PM EDT [facility] Non HDL Chol. (LDL+VLDL) 106 <145 mg/dL LAB CHEMISTRY METHOD 07/20/2025 1:21 PM EDT [facility] Chol/HDL Ratio 2.5 0.0 - 4.4 LAB CHEMISTRY METHOD 07/20/2025 1:21 PM EDT [facility] Blood Venous blood specimen / Unknown Venipuncture / Unknown 07/20/2025 9:06 AM EDT 07/20/2025 9:06 AM EDT Alvaro Gallagher MD LAB BLOOD ORDERA BLES Final Result [facility] [address] [place] [address], from Last 3 Months or Most Recently Relevant to Health Maintenance Insurance [facility] Care Teams Agriculture Technician Relationship Specialty Start Date End Date Alvaro Gallagher MD [address] [place] [phone] PCP - General Internal Medicine 07/07/25
[2025-10-24 11:43] LABS: MANUAL DIFF FLAG NO
[2025-10-24 11:54] LABS: Hematocrit 37.2 % (37.0-47.0); Hemoglobin 11.9 g/dl (12.0-16.0); Imm Gran Abs Auto 0.07 X10*3/uL (0.00-0.03); Imm Gran Pct Auto 1.0 % (0.0-0.4); Lymphocytes Absolute Auto 1.6 X10*3/uL (1.2-4.9); Mean Corpuscular HGB Conc 32.0 g/dl (31.0-35.0); Mean Corpuscular Hemoglobin 26.8 pg (27.0-33.0); Mean Corpuscular Volume 83.8 fL (80.0-98.0); NRBC Abs Auto 0.000 X10*3/uL (0.0-0.012); NRBC Pct Auto 0.0 /100WBC (0.0-0.2); Platelet Count 285 X10*3/uL (160-400); Red Blood Count 4.44 X10*6/uL (4.20-5.50); White Blood Count 7.2 X10*3/uL (4.8-10.8)
[2025-10-24 12:29] LABS: Alanine Aminotransferase 33 U/L (0-31); Albumin Level 4.5 g/dL (3.5-5.0); Alkaline Phosphatase 81 U/L (39-117); Anion Gap 12 (12-20); Aspartate Amino Transferase 27 U/L (5-31); Blood Urea Nitrogen 12 mg/dL (9-16); Calcium 9.1 mg/dL (8.4-10.2); Carbon Dioxide 27 mmol/L (22-29); Chloride 106 mmol/L (96-108); Cholesterol 172 mg/dL (<200); Estimated Glomerular Filt Rate > 60; HDL Cholesterol 59 mg/dL (>40); Magnesium 2.0 mg/dL (1.6-2.6); Potassium 4.3 mmol/L (3.3-5.1); Sodium 141 mmol/L (135-145); Thyroid Stimulating Hormone 1.80 uIU/mL (0.32-4.0); Total Protein 7.3 g/dL (6.5-8.0); Triglycerides 132 mg/dL (<150)
[2025-10-28 13:58] LABS: VITAMIN D (1,25 OH) D3 62 pg/mL; Vit D (1,25-Dihydroxy) Total 62 pg/mL (18-72); Vitamin D (1,25 OH) D2 <8 pg/mL
== END 2025-10-24 08:28 | disposition home or self-care (01) ==
LOC: HO.HHCL 08:27
PROVIDERS: Visit Provider Nurse Practitioner Family
DX: F41.1 Generalized anxiety disorder (principal); Z79.899 Other long term (current) drug therapy; Z13.21 Encounter for screening for nutritional disorder; Z32.00 Encounter for pregnancy test, result unknown
CPT/HCPCS: 36415; 80053; 80061; 82652; 83036; 83735; 84443; 84702; 85025